=== PATIENT | female | born 1950 | race Two or more races ===

== ENCOUNTER → 2020-09-06 13:37 | Outpatient (BNVA) | payer MEDICARE, SELFPAY | PROVIDERS: PCP Internal Medicine; Visit Provider Nurse Practitioner ==

== ENCOUNTER 2020-10-22 11:17 | Outpatient (REF) | payer MEDICARE, SELFPAY ==
--- NOTE | ~2020-10-22 | MM_ITS ---
EXAMINATION: MM SCREENING DIGITAL BREAST TOMOSYNTHESIS, BILATERAL CLINICAL INFORMATION: Screening. Asymptomatic. The lifetime risk of breast cancer based on the Tyrer-Cuzick Model is 2.9%. COMPARISON: Mammography: September 16, 2019 and studies dating back to August 27, 2017 TECHNIQUE: Digital breast tomosynthesis is performed in both the craniocaudal and mediolateral oblique views along with computer-aided detection (CAD). Synthesized 2D images are generated from the tomosynthesis. FINDINGS: There are scattered areas of fibroglandular density (ACR BI-RADS breast composition Category b). There are no significant masses, abnormal calcifications, or other abnormalities. MM/MM tomosynthesis screening BI IMPRESSION: There are no significant changes from prior study. ASSESSMENT: BI-RADS 1: Negative RECOMMENDATION: Routine annual mammography screening. This patient's information was entered into a reminder system with a target due date for their next mammogram.
== END 2020-10-22 11:18 | disposition home or self-care (01) ==
LOC: HO.MAMMO 11:17
PROVIDERS: Visit Provider Internal Medicine
DX: Z12.31 Encounter for screening mammogram for malignant neoplasm of breast (principal)
CPT/HCPCS: 77063; 77067

== ENCOUNTER → 2020-12-10 15:24 | Outpatient (BNVA) | payer MEDICARE, SELFPAY | PROVIDERS: PCP Internal Medicine; Visit Provider Nurse Practitioner | DX: K21.9 Gastro-esophageal reflux disease without esophagitis (principal); D64.9 Anemia, unspecified; K59.04 Chronic idiopathic constipation; R14.0 Abdominal distension (gaseous) | CPT/HCPCS: 99212 ==

== ENCOUNTER 2021-01-06 08:56 | Outpatient (REF) | payer MEDICARE, SELFPAY ==
--- NOTE | ~2021-01-06 | US_ITS ---
EXAMINATION: US ABDOMEN COMPLETE CLINICAL INFORMATION: Right upper quadrant pain. COMPARISON: None TECHNIQUE: Real-time imaging of the abdominal viscera. Technically difficult study secondary to bowel gas. FINDINGS: PANCREAS: The head and body the pancreas are normal appearing. The tail is not well visualized due to bowel gas. The main pancreatic duct is upper normal in size measuring 3 mm. ABDOMINAL AORTA: The proximal, mid, and distal segments are normal in caliber. INFERIOR VENA CAVA: Visualized portions are normal. LIVER: The liver is normal in size. The liver contour is normal. Liver echotexture is increased probably representing fatty infiltration. No focal hepatic lesion. There is no intrahepatic biliary duct dilatation seen. GALLBLADDER: Normal. The gallbladder is physiologically distended without evidence of stones, sludge, polyps, wall thickening or pericholecystic fluid. COMMON BILE DUCT: Normal in caliber measuring 0.5 cm in diameter. RIGHT KIDNEY: Normal. No hydronephrosis. No renal calculi or focal parenchymal lesions. The kidney measures 11.2 cm in maximum dimension. LEFT KIDNEY: Normal. No hydronephrosis. No renal calculi or focal parenchymal lesions. The kidney measures 10.8 cm in maximum dimension. SPLEEN: Normal. The spleen measures 8.9 cm in maximum dimension. FREE FLUID: None. US/US abdomen complete IMPRESSION: Echogenic liver probably representing fatty infiltration. Limited visualization of the tail the pancreas. The visualized main pancreatic duct is upper normal in size measuring 3 mm.
== END 2021-01-06 08:57 | disposition home or self-care (01) ==
LOC: HO.US 08:56
PROVIDERS: Visit Provider Internal Medicine
DX: R10.11 Right upper quadrant pain (principal)
CPT/HCPCS: 76700

== ENCOUNTER → 2021-05-12 09:31 | Outpatient (BNVA) | payer MEDICARE, SELFPAY | PROVIDERS: PCP Internal Medicine; Referring Provider Internal Medicine; Visit Provider Nurse Practitioner | DX: K59.04 Chronic idiopathic constipation (principal); K21.9 Gastro-esophageal reflux disease without esophagitis; R14.0 Abdominal distension (gaseous) | CPT/HCPCS: 99212 ==

== ENCOUNTER 2021-06-07 14:24 | Outpatient (REF) | payer MEDICARE, SELFPAY ==
--- NOTE | ~2021-06-07 | XR_ITS ---
EXAMINATION: XR THORACOLUMBAR SPINE CLINICAL INFORMATION: Back pain radiating to right side COMPARISON: Chest x-ray from the same day TECHNIQUE: 3 views of the thoracic spine including swimmer's view FINDINGS: Bone alignment is normal. No fracture or dislocation is seen. There is multilevel degenerative disc disease and spondylosis. Paraspinal soft tissues are normal. XR/XR thoracic spine 2V IMPRESSION: Multilevel degenerative changes.
--- NOTE | ~2021-06-07 | XR_ITS ---
EXAMINATION: XR CHEST CLINICAL INFORMATION: Posterior chest wall pain COMPARISON: Previous chest x-ray August 2019 and thoracic spine x-ray from the same day TECHNIQUE: Frontal view of the chest was obtained. FINDINGS: The cardiac and mediastinal contours are stable. The lungs are clear. There is no pleural effusion or pneumothorax. There are degenerative changes of the thoracic spine. XR/XR chest 1V IMPRESSION: No evidence for acute disease in the chest.
[2021-06-07 17:04] LABS: Appearance Urine CLEAR; Color Urine YELLOW; Glucose Urine UA NEG (NEG); Leukocyte Esterase Urine NEG (NEG); Nitrite Urine NEG (NEG); Specific Gravity - Urine <= 1.005 (1.005-1.025); Urine Blood NEG (NEG); Urine Ketones NEG (NEG); Urine Protein NEG (NEG-TRACE)
== END 2021-06-07 14:25 | disposition home or self-care (01) ==
LOC: HO.LAB 14:24
PROVIDERS: PCP Internal Medicine; Referring Provider Internal Medicine; Visit Provider Nurse Practitioner
DX: R10.9 Unspecified abdominal pain (principal); K21.9 Gastro-esophageal reflux disease without esophagitis; K59.04 Chronic idiopathic constipation; Z79.899 Other long term (current) drug therapy
CPT/HCPCS: 71045; 72070; 81003; 99212

== ENCOUNTER 2021-06-27 13:02 | Outpatient (REF) | payer MEDICARE, SELFPAY ==
--- NOTE | ~2021-06-27 | XR_ITS ---
EXAMINATION: XR CERVICAL SPINE XR THORACIC SPINE CLINICAL INFORMATION: Cervicalgia and thoracic spine pain. COMPARISON: Thoracic spine 06/07/2021. TECHNIQUE: 3 views thoracic spine, 5 views cervical spine. FINDINGS: CERVICAL SPINE: Marked degenerative changes are present at C5-C6 with marked disc space narrowing and osteophyte formation. There is minimal foraminal narrowing at this level on the right and slightly more narrowing at that level on the left. No soft tissue swelling, fractures or subluxations are seen. Milder degenerative changes are noted at other levels. THORACIC SPINE: Thoracic vertebral body heights are well maintained without fractures or destructive lesions. There is mild disc space narrowing throughout the upper to mid thoracic spine. Lateral osteophytes are present. Paraspinal soft tissue lines appear normal. No interval change when compared to 06/07/2021. XR/XR thoracic spine 3V IMPRESSION: Degenerative changes cervical and thoracic spine as described above. No acute finding.
--- NOTE | ~2021-06-27 | XR_ITS ---
EXAMINATION: XR CERVICAL SPINE XR THORACIC SPINE CLINICAL INFORMATION: Cervicalgia and thoracic spine pain. COMPARISON: Thoracic spine 06/07/2021. TECHNIQUE: 3 views thoracic spine, 5 views cervical spine. FINDINGS: CERVICAL SPINE: Marked degenerative changes are present at C5-C6 with marked disc space narrowing and osteophyte formation. There is minimal foraminal narrowing at this level on the right and slightly more narrowing at that level on the left. No soft tissue swelling, fractures or subluxations are seen. Milder degenerative changes are noted at other levels. THORACIC SPINE: Thoracic vertebral body heights are well maintained without fractures or destructive lesions. There is mild disc space narrowing throughout the upper to mid thoracic spine. Lateral osteophytes are present. Paraspinal soft tissue lines appear normal. No interval change when compared to 06/07/2021. XR/XR cervical spine 4V IMPRESSION: Degenerative changes cervical and thoracic spine as described above. No acute finding.
== END 2021-06-27 13:03 | disposition home or self-care (01) ==
LOC: HO.XRAY 13:02
PROVIDERS: Visit Provider Internal Medicine
DX: M54.2 Cervicalgia (principal); M54.6 Pain in thoracic spine
CPT/HCPCS: 72050; 72072

== ENCOUNTER 2021-08-15 09:13 | Outpatient (REF) | payer MEDICARE, SELFPAY ==
--- NOTE | ~2021-08-15 | US_ITS ---
EXAMINATION: US ABDOMEN COMPLETE CLINICAL INFORMATION: Unspecified abdominal pain. COMPARISON: Ultrasound abdomen complete 01/06/2021. TECHNIQUE: Real-time imaging of the abdominal viscera. FINDINGS: PANCREAS: The main pancreatic duct is slightly prominent measuring 4 mm. This is similar to December 2020 exam. The tail the pancreas is not well visualized due to bowel gas. ABDOMINAL AORTA: Proximal and mid abdominal aorta are normal in caliber. The distal abdominal aorta is not well visualized due to bowel gas. INFERIOR VENA CAVA: Visualized portions are normal. LIVER: Echotexture is increased. The liver is normal in size. The liver contour is normal. No focal hepatic lesion. There is no intrahepatic biliary duct dilatation seen. GALLBLADDER: Normal. The gallbladder is physiologically distended without evidence of stones, sludge, polyps, wall thickening or pericholecystic fluid. COMMON BILE DUCT: Normal in caliber measuring 0.4 cm in diameter. RIGHT KIDNEY: Normal. No hydronephrosis. No renal calculi or focal parenchymal lesions. The kidney measures 10.9 cm in maximum dimension. LEFT KIDNEY: Normal. No hydronephrosis. No renal calculi or focal parenchymal lesions. The kidney measures 11.7 cm in maximum dimension. SPLEEN: Normal. The spleen measures 9.4 cm in maximum dimension. FREE FLUID: None. US/US abdomen complete IMPRESSION: Echogenic liver probably representing fatty infiltration. Prominent main pancreatic duct in the head of the pancreas similar to previous exam. The tail the pancreas and distal abdominal aorta are not well visualized due to bowel gas.
== END 2021-08-15 09:14 | disposition home or self-care (01) ==
LOC: HO.US 09:13
PROVIDERS: PCP Internal Medicine; Visit Provider Nurse Practitioner
DX: R10.9 Unspecified abdominal pain (principal)
CPT/HCPCS: 76700

== ENCOUNTER 2021-08-16 07:32 | Outpatient (REF) | payer MEDICARE, OTHER, SELFPAY ==
--- NOTE | ~2021-08-16 | CT_ITS ---
EXAMINATION: CT ABDOMEN WITH CONTRAST CLINICAL INFORMATION: Right upper quadrant pain. COMPARISON: Previous abdominal ultrasound from yesterday. TECHNIQUE: Contiguous axial thin section helical images of the abdomen were performed following the administration of oral contrast and 85 mL of Omnipaque 350 intravenous contrast. The data set was reformatted in the coronal and sagittal planes and reviewed on an independent workstation. This CT examination was performed using dose optimization techniques as appropriate, variously including the following: *Automated exposure control *Adjustment of mA and/or kV according to patient size (this includes techniques or standardized protocols for targeted exams where dose is matched to indication/reason for exam; i.e. extremities or head) *Use of iterative reconstruction technique DLP: 185 mGy-cm FINDINGS: LUNG BASES: Unremarkable. LIVER, GALLBLADDER, AND BILIARY TREE: The liver is low in attenuation suggestive of fatty infiltration. No focal liver lesion or biliary duct dilatation. There are small calcifications in the peripheral right lobe. The gallbladder is normal. PANCREAS: There is mild dilatation of the main pancreatic duct in the head of the pancreas. This measures up to 6 mm. No mass in the pancreas is seen. SPLEEN: Unremarkable. ADRENAL GLANDS AND KIDNEYS: Unremarkable. BOWEL LOOPS: There is mild diverticulosis of the colon. There is stool in the colon questionable for constipation. Visualized small and large bowel is otherwise unremarkable. There is a small esophageal hernia. There is a small umbilical hernia. LYMPH NODES: Normal. VASCULAR: There is evidence of atherosclerotic disease. No aneurysm is seen. BONES: There are degenerative changes of the spine. CT/CT abdomen w con IMPRESSION: Fatty liver. Prominent main pancreatic duct in the head of the pancreas measuring up to 6 mm. No mass. This could be better evaluated with MRI of the pancreas with MRCP if clinically indicated. Mild diverticulosis question constipation. Small umbilical hernia containing fat. Fleischner guidelines were followed.
[2021-08-16 09:33] LABS: Blood Urea Nitrogen 12 mg/dL (9-16); Estimated Glomerular Filt Rate 59
[2021-08-16] MEDS: iohexoL 350 MG/ML 100 ML INFUS..BTL IV (10:31)
[2021-08-16] MEDS: Barium Sulfate Oral (Mocha) 450 ML ORAL.SUSP PO (10:32)
== END 2021-08-16 07:33 | disposition home or self-care (01) ==
LOC: HO.CT 07:32
PROVIDERS: PCP Internal Medicine; Visit Provider Internal Medicine
DX: R10.11 Right upper quadrant pain (principal)
CPT/HCPCS: 36415; 74160; 82565; 84520; Q9967

== ENCOUNTER → 2021-08-30 08:02 | Outpatient (BNVA) | payer MEDICARE, SELFPAY | PROVIDERS: PCP Internal Medicine; Referring Provider Internal Medicine; Visit Provider Nurse Practitioner | DX: K21.9 Gastro-esophageal reflux disease without esophagitis (principal); K59.04 Chronic idiopathic constipation; R14.0 Abdominal distension (gaseous); M47.24 Other spondylosis with radiculopathy, thoracic region | CPT/HCPCS: 99212 ==

== ENCOUNTER 2021-10-24 11:49 | Outpatient (REF) | payer MEDICARE, SELFPAY ==
--- NOTE | ~2021-10-24 | MM_ITS ---
EXAMINATION: MM SCREENING DIGITAL BREAST TOMOSYNTHESIS, BILATERAL CLINICAL INFORMATION: Screening. Asymptomatic. The lifetime risk of breast cancer based on the Tyrer-Cuzick Model is 5%. COMPARISON: Mammography: 10/22/2020, 09/16/2019, 09/10/2018, 118, 09/12/2017, 08/27/2017 TECHNIQUE: Digital breast tomosynthesis is performed in both the craniocaudal and mediolateral oblique views along with computer-aided detection (CAD). Synthesized 2D images are generated from the tomosynthesis. FINDINGS: There are scattered areas of fibroglandular density (ACR BI-RADS breast composition Category b). Parenchymal pattern is similar to prior studies. There are scattered minor asymmetries similar to previous exams. No developing density or interval mass or architectural abnormality. No abnormal calcifications. The axilla and skin contours are unremarkable. MM/MM tomosynthesis screening BI IMPRESSION: No significant changes from prior studies. ASSESSMENT: BI-RADS 2: Benign RECOMMENDATION: Routine annual mammography screening. This patient's information was entered into a reminder system with a target due date for their next mammogram.
== END 2021-10-24 11:50 | disposition home or self-care (01) ==
LOC: HO.MAMMO 11:49
PROVIDERS: Visit Provider Advanced Practice Midwife
DX: Z12.31 Encounter for screening mammogram for malignant neoplasm of breast (principal)
CPT/HCPCS: 77063; 77067

== ENCOUNTER 2021-10-25 14:56 | Outpatient (REF) | payer MEDICARE, SELFPAY ==
--- NOTE | ~2021-10-25 | MM_ITS ---
EXAMINATION: BONE DENSITOMETRY CLINICAL INDICATION: Osteopenia. COMPARISON: Baseline BD dated 09/11/2017. TECHNIQUE: Using a [employer] DXA System (software version: 13.1) manufactured by [employer] dual-energy x-ray absorptiometry was performed of the lumbar spine and left hip. The images are of good technical quality. Summary results are attached. FINDINGS: AP SPINE L1-L4: Current: BMD 0.991 g/cm2, Z-score 0.0, T-score -1.6, osteopenia, 7.1% increase from baseline (<5% change is not significant). Baseline: BMD 0.925 g/cm2. LEFT FEMUR, NECK: Current: BMD 0.727 g/cm2, Z-score -0.5, T-score -2.2, osteopenia. Baseline: BMD 0.813 g/cm2. LEFT FEMUR, TOTAL: Current: BMD 0.805 g/cm2, Z-score -0.1, T-score -1.6, osteopenia, 8.8% decrease from baseline (<5% change is not significant). Baseline: BMD 0.883 g/cm2. IDENTIFIED RISK FACTORS: Menopause, secondary osteoporosis. HISTORY OF FRACTURE: None listed. MEDICATIONS: Calcium. MM/XR DEXA axial skeleton IMPRESSION: 1. DIAGNOSIS: Osteopenia based on the lowest T-score value of -2.2 in the femoral neck applying World Health Organization criteria. 2. 10-YEAR FRACTURE RISK PREDICTION, FRAX: Major osteoporotic fracture (clinical spine, forearm, hip or shoulder) 8.1%. Hip fracture 2.0%. 3. Treatment Recommendations: NOF guidelines recommend consideration for treatment in postmenopausal women and men age 50 and older presenting with the following: -A hip or vertebral (clinical or morphometric) fracture. -T-score less than or equal to -2.5 at the femoral neck or spine after appropriate evaluation to exclude secondary causes. -Low bone mass at the hip or spine and a 10-year fracture probability by FRAX of greater than or equal to 3% for hip fracture or greater than or equal to 20% for major osteoporotic fracture based on the [place] adapted WHO algorithm. 4. Other Recommendations: All treatment decisions require clinical judgment and consideration of individual patient factors, including patient preferences, comorbidities, previous drug use, risk factors not captured in the FRAX model (e.g. frailty, falls, vitamin D deficiency, increased bone turnover, interval significant decline in bone density) and possible under or overestimation of fracture risk by FRAX. Additional medical evaluation for secondary cause of low bone mineral density may be appropriate. FUTURE SCAN RECOMMENDATION: People with diagnosed cases of osteoporosis or at high risk for fracture should have regular bone mineral density tests. For patients eligible for Medicare, routine testing is allowed once every 2 years. The testing frequency can be increased to one year for patients who have rapidly progressing disease, those who are receiving or discontinuing medical therapy to restore bone mass, or have additional risk factors.
== END 2021-10-25 14:57 | disposition home or self-care (01) ==
LOC: HO.MAMMO 14:56
PROVIDERS: Visit Provider Advanced Practice Midwife
DX: Z13.820 Encounter for screening for osteoporosis (principal); Z78.0 Asymptomatic menopausal state; M85.80 Other specified disorders of bone density and structure, unspecified site
CPT/HCPCS: 77080

== ENCOUNTER 2021-11-29 10:15 | Outpatient (REF) | payer MEDICARE, MEDICAID, SELFPAY ==
[2021-11-29 11:24] LABS: Blood Urea Nitrogen 12 mg/dL (9-16); Estimated Glomerular Filt Rate > 60
== END 2021-11-29 10:16 | disposition home or self-care (01) ==
LOC: HO.LAB 10:15
PROVIDERS: PCP Internal Medicine; Visit Provider Internal Medicine
DX: E11.9 Type 2 diabetes mellitus without complications (principal)
CPT/HCPCS: 36415; 82565; 84520

== ENCOUNTER 2021-12-07 09:00 | Outpatient (REF) | payer MEDICARE, OTHER, SELFPAY ==
--- NOTE | ~2021-12-07 | MR_ITS ---
EXAMINATION: MR ABDOMEN WITHOUT AND WITH CONTRAST CLINICAL INFORMATION: Dilated pancreatic duct. Pain. COMPARISON: Previous abdominal ultrasound most recent July [address] of the abdomen and pelvis July 2021 TECHNIQUE: MR abdomen was performed without and with use of 7 mL intravenous Gadavist gadolinium contrast. Postcontrast images are performed in multiphase dynamic sequences. Imaging was performed in 3 planes. MRCP sequences were also performed. FINDINGS: LUNG BASES: The visualized lung bases are unremarkable. LIVER, GALLBLADDER, AND BILIARY TREE: The liver is normal in size and contour. There is signal loss in the liver on out of phase sequences suggestive of fatty infiltration.. No focal hepatic lesion or biliary ductal dilatation is present. The gallbladder is unremarkable with no evidence of gallbladder wall thickening, or obvious pericholecystic inflammatory changes. PANCREAS: There is mild dilatation of the main pancreatic duct head of the pancreas measuring 4-5 mm. There is question of focal cystic dilatation of the main pancreatic duct in the head of the pancreas on thick slices. No focal cystic dilatation or cyst in the pancreas seen is seen on thin slices and this likely represents duct tortuosity. The pancreas is normal in signal. The pancreas enhances normally. The peripancreatic fat is normal. SPLEEN: Normal. ADRENAL GLANDS: Normal. KIDNEYS AND URETERS: The kidneys are normal in size, shape, and enhance symmetrically. No hydronephrosis. No perinephric stranding. GASTROINTESTINAL TRACT: There is mild diverticulosis of the colon. There is a small umbilical hernia containing fat. ABDOMINAL WALL: No significant hernia is appreciated. LYMPH NODES: No lymphadenopathy. VASCULAR: Unremarkable. OSSEOUS STRUCTURES: Marrow signal normal. MR/MR abdomen wo/w con IMPRESSION: Mild dilatation of the main pancreatic duct in the head of the pancreas similar to previous exam July 2021. No mass seen. Fatty liver.
== END 2021-12-07 09:01 | disposition home or self-care (01) ==
LOC: HO.MRI 09:00
PROVIDERS: Visit Provider Internal Medicine
DX: K86.89 Other specified diseases of pancreas (principal)
CPT/HCPCS: 74183; A9585

== ENCOUNTER → 2022-06-02 15:12 | Outpatient (BNVA) | payer MEDICARE, OTHER, SELFPAY | PROVIDERS: PCP Internal Medicine; Visit Provider Nurse Practitioner | DX: M47.24 Other spondylosis with radiculopathy, thoracic region (principal); K21.9 Gastro-esophageal reflux disease without esophagitis; R14.0 Abdominal distension (gaseous); K59.04 Chronic idiopathic constipation | CPT/HCPCS: 99212 ==

== ENCOUNTER 2022-06-15 13:05 | Emergency (ER) | payer MEDICARE, SELFPAY ==
--- NOTE | ~2022-06-15 | XR_ITS ---
EXAMINATION: XR CHEST CLINICAL INFORMATION: Syncope COMPARISON: Chest x-ray 06/07/2021 TECHNIQUE: Frontal view of the chest was obtained. FINDINGS: The lungs are clear. No airspace consolidation, pleural effusion, or pneumothorax. The cardiomediastinal silhouette is within normal limits. No acute osseous injury. XR/XR chest 1V IMPRESSION: No acute pulmonary disease.
--- NOTE | ~2022-06-15 | CT_ITS ---
EXAMINATION: CT ABDOMEN AND PELVIS WITH CONTRAST CLINICAL INFORMATION: Right lower quadrant/epigastric pain COMPARISON: CT abdomen and pelvis 08/16/2021 TECHNIQUE: Multidetector volumetric images were obtained from the superior aspect of the liver through the pubic symphysis following administration 85 mL of Omnipaque 350 intravenous contrast. Sagittal and coronal reformatted images were obtained on the technologist's workstation. Oral contrast: No This CT examination was performed using dose optimization techniques as appropriate, variously including the following: *Automated exposure control *Adjustment of mA and/or kV according to patient size (this includes techniques or standardized protocols for targeted exams where dose is matched to indication/reason for exam; i.e. extremities or head) *Use of iterative reconstruction technique DLP: 458 mGy-cm FINDINGS: LUNG BASES: Minimal lingular subsegmental atelectasis. LIVER, GALLBLADDER, AND BILIARY TREE: Mild hepatic hypoattenuation/steatosis. No liver lesion. No biliary ductal dilation. The gallbladder is unremarkable with no evidence of radiopaque gallstones, gallbladder wall thickening, or obvious pericholecystic inflammatory changes. PANCREAS: Mild dilation of the distal pancreatic duct at the pancreatic head, unchanged. No pancreatic lesion or peripancreatic inflammatory change. SPLEEN: Unremarkable. ADRENAL GLANDS: Unremarkable. KIDNEYS AND URETERS: Symmetric nephrograms. No hydronephrosis or renal calculi. No perinephric stranding. There several small sub-5 mm hypodense bilateral renal lesions, too small to characterize and likely tiny cysts. No further follow-up recommended. BLADDER: Unremarkable. GASTROINTESTINAL TRACT: Mild scattered colonic diverticulosis. No evidence of acute diverticulitis. No dilated bowel loops. No bowel wall thickening. Normal appendix. No ascites or free air. ABDOMINAL WALL: Tiny fat-containing umbilical hernia. Small bubbles of subcutaneous gas and stranding in the left lower quadrant abdominal wall consistent with injection site. LYMPH NODES: No lymphadenopathy. VASCULAR: Normal caliber abdominal aorta. Mild to moderate vascular calcifications. PELVIC VISCERA: Gynecologic structures grossly unremarkable. OSSEOUS STRUCTURES: No acute fracture or suspicious osseous lesion. CT/CT abdomen pelvis w IV con IMPRESSION: 1. No evidence of acute appendicitis or other acute intra-abdominal process. 2. Mild colonic diverticulosis. No evidence of acute diverticulitis. 3. Mild hepatic steatosis.
[2022-06-15 14:01] VITALS: BP 135/73; PULSE 105; RESP 18; TEMP 36.3; O2SAT 96; BMI 23.1
--- NOTE | 2022-06-15 14:01 | ED.GENADULT ---
HPI - General Adult General Chief complaint: Abdominal Pain <JOSE JUAN Leonard - Last Filed: 06/15/22 14:09> Stated complaint: fell 2 days ago not feeling well stomach issue <JOSE JUAN Leonard - Last Filed: 06/15/22 14:09> Time Seen by Provider: 06/15/22 19:20 <JOSE JUAN Leonard - Last Filed: 06/15/22 14:09> Source: patient and family <Joanie Abbott MD - Last Filed: 06/15/22 22:32> Mode of arrival: ambulatory <Joanie Abbott MD - Last Filed: 06/15/22 22:32> Limitations: no limitations <Joanie Abbott MD - Last Filed: 06/15/22 22:32> History of Present Illness HPI narrative: Patient comes to the emergency room complaining of syncopal episode secondary to hypoglycemia that occurred 2 days ago. According to the patient's , the patient passed out in the couch, patient did not fall down or hit her head. Patient states that she has had multiple hypoglycemic events in the last couple of years. Patient takes insulin Lantus, Humulin and metformin. Patient states that over last 3 days she has been also complaining of abdominal distension. Patient was prescribed omeprazole and simethicone. <Joanie Abbott MD - Last Filed: 06/15/22 22:32> Related Data Home medications: Home Medications Medication Instructions Recorded Confirmed calcium carbonate 600 mg-vitamin 1 tab PO DAILY 12/10/20 12/10/20 D3 20 mcg (800 unit) tablet cetirizine 10 mg tablet 10 mg PO DAILY 12/10/20 12/10/20 enalapril maleate 20 mg tablet 20 mg PO DAILY 12/10/20 12/10/20 gabapentin 800 mg tablet mg PO 12/10/20 12/10/20 insulin aspart U-100 100 unit/mL 5 unit subcut TID 12/10/20 12/10/20 subcutaneous solution insulin glargine 100 unit/mL 36 unit subcut DAILY 12/10/20 12/10/20 subcutaneous solution metformin 1,000 mg tablet 1,000 mg PO BID 12/10/20 12/10/20 ramelteon 8 mg tablet 8 mg PO BEDTIME 12/10/20 12/10/20 simvastatin 20 mg tablet 20 mg PO BEDTIME 12/10/20 12/10/20 trazodone 100 mg tablet 100 mg PO QPM 12/10/20 12/10/20 blood sugar diagnostic (OneTouch #10 ea 06/02/22 Verio test strips) blood-glucose meter (OneTouch #1 ea 06/02/22 Verio Flex Meter) insulin lispro 100 unit/mL subcut 06/02/22 subcutaneous solution (Humalog U-100 Insulin) insulin syringe-needle U-100 0.3 #10 ea 06/02/22 mL 31 gauge x 5/16 Previous Rx's Medication Instructions Recorded prednisone 20 mg tablet See Rx Instructions PO DAILY #7 08/30/21 tabs bisacodyl 5 mg tablet,delayed 10 mg PO BEDTIME 30 days #60 tabs 06/02/22 release (Dulcolax (bisacodyl)) omeprazole 40 mg capsule,delayed 40 mg PO BID #60 caps 06/02/22 release simethicone 180 mg capsule 180 mg PO TID #90 caps 06/02/22 glucagon 1 mg solution for 1 mg subcut Q20M PRN hypoglycemia 06/15/22 injection (Glucagon Emergency Kit) #1 ea <JOSE JUAN Leonard - Last Filed: 06/15/22 14:09> Allergies/adverse reactions: Allergies Allergy/AdvReac Type Severity Reaction Status Date / Time No Known Allergies Allergy Verified 06/02/22 15:17 [No Known Allergies*] <JOSE JUAN Leonard - Last Filed: 06/15/22 14:09> Review of Systems Review of Systems: Constitutional : No Weight loss, No Fever, No Chills, No Night Sweats, No Fatigue, No Malaise ENT/Mouth : No Hearing loss, No Ear Pain, No Nasal Congestion, No Sinus Pain, No Hoarseness, No sore throat, No Rhinorrhea, No Swallowing Difficulty Eyes: No Eye Pain, No Swelling, No Redness, No Foreign Body, No Discharge, No Vision Changes Cardiovascular : No Chest Pain, No SOB, No Dyspnea on Exertion, No Orthopnea, No Edema, No Palpitations Respiratory : No Cough, No Sputum, No Wheezing, No Smoke Exposure, No Dyspnea Gastrointestinal : Complaining of abdominal distension, No Nausea, No Vomiting, No Diarrhea, No Constipation, No abdominal Pain, No Hematochezia, No Melena Genitourinary : no irregular bleeding, No Dysuria, No Urinary Frequency, No Hematuria, No Urinary Incontinence, No Urgency, No Flank Pain, No Urinary Flow Changes, No Hesitancy Musculoskeletal : No joint pain, No Myalgias, No Joint Swelling Skin : No Skin Lesions, No rash Neuro : No Weakness, No Numbness, No Paresthesias, No Loss of Consciousness, No Dizziness, No Headache Psych : No Anxiety/Panic, No Depression, No SI/HI/AH/VH, No Social Issues, Heme/Lymph: No Bruising, No Bleeding,No Lymphadenopathy Endocrine : No Polyuria, No Polydipsia, No Temperature Intolerance, complaining of hypoglycemia at home <Joanie Abbott MD - Last Filed: 06/15/22 22:32> [facility] Past Medical History Medical History: Medical History (Updated 06/15/22 @ 22:30 by Joanie Abbott MD) Type 2 diabetes <JOSE JUAN Leonard - Last Filed: 06/15/22 14:09> Surgical History: Surgical History History of esophagogastroduodenoscopy (EGD) Hx of colonoscopy <JOSE JUAN Leonard - Last Filed: 06/15/22 14:09> Social History Social History: Social History Household Members: Spouse Alcohol intake: never Smoked in Last 30 Days: No Use of substances other than those prescribed or required for medical reasons: No Advance Directives: No Advance Directives Information Provided: Yes Current occupational status: retired <JOSE JUAN Leonard - Last Filed: 06/15/22 14:09> Physical Exam ED Vital Signs: Vital Signs - 24 hr 06/15/22 14:01 06/15/22 17:49 06/15/22 19:27 Temperature 97.3 F 98.5 F Pulse Rate 105 H 106 H 97 Respiratory Rate 18 18 16 Blood Pressure 135/73 140/71 H 138/64 Pulse Oximetry 96 97 98 Oxygen Delivery Method Room Air Room Air Room Air BMI result Body Mass Index 23.1 <JOSE JUAN Leonard - Last Filed: 06/15/22 14:09> Vital Signs - 24 hr 06/15/22 14:01 06/15/22 17:49 06/15/22 19:27 Temperature 97.3 F 98.5 F Pulse Rate 105 H 106 H 97 Respiratory Rate 18 18 16 Blood Pressure 135/73 140/71 H 138/64 Pulse Oximetry 96 97 98 Oxygen Delivery Method Room Air Room Air Room Air BMI result Body Mass Index 23.1 <Joanie Abbott MD - Last Filed: 06/15/22 22:32> Course Course Course Narrative: RMRosalie--71-year-old female with a past medical history of GERD, anemia, constipation, DM feels like ball in stomach with associated diarrhea, burping and nausea x1week. Also reports syncopal episode 2 days ago due to hypoglycemia, reports glucose was in the 50s. patient does not remember incident, states says she fell to ground, denies head trauma. Takes baby ASA. Denies headache at present, CP/SOB, fever, vomiting, dysuria/hematuria. Denies similar symptoms in the past. Takes metformin and insulin for her diabetes Reports POC 60s this morning denies taking diabetic meds Abdomen is soft with epigastric and RLQ tenderness on exam. Walking with steady gait Labs, UA, CXR, CTAP, orthostatics ordered in triage <JOSE JUAN Leonard - Last Filed: 06/15/22 14:09> UCHE--71-year-old female with a past medical history of GERD, anemia, constipation, DM feels like ball in stomach with associated diarrhea, burping and nausea x1week. Also reports syncopal episode 2 days ago due to hypoglycemia, reports glucose was in the 50s. patient does not remember incident, states says she fell to ground, denies head trauma. Takes baby ASA. Denies headache at present, CP/SOB, fever, vomiting, dysuria/hematuria. Denies similar symptoms in the past. Takes metformin and insulin for her diabetes Reports POC 60s this morning denies taking diabetic meds Abdomen is soft with epigastric and RLQ tenderness on exam. Walking with steady gait Labs, UA, CXR, CTAP, orthostatics ordered in triage Patient is well-appearing, patient states that she no longer has any abdominal pain after CT scan was done. CT scan did not show any abnormalities. I discussed with the patient that she may have an high amount of units of Lantus at night. Patient asked to cut down from 35 units to 30 at night and [address] scan negative. <Joanie Abbott MD - Last Filed: 06/15/22 22:32> Medications Administered Discontinued Medications Generic Name Dose Route Start Last Admin Trade Name Freq PRN Reason Stop Dose Admin Al Hydroxide/Mg Hydroxide 30 ml 06/15/22 14:04 06/15/22 19:03 Magnesium Hydrox/Alum Hydrox 30 Ml Oral.Susp PO 06/15/22 14:05 30 ml ONCE ONE Administration Famotidine 20 mg 06/15/22 14:04 06/15/22 19:03 Famotidine/Pf 20 Mg/2 Ml Vial IVPUSH 06/15/22 14:05 20 mg ONCE ONE Administration Iohexol 100 ml 06/15/22 20:03 06/15/22 20:04 Iohexol 350 Mg/Ml 100 Ml Infus..Btl IV 06/15/22 20:04 85 ml ONCE ONE Administration Sodium Zirconium Cyclosilicate 5 gm 06/15/22 17:49 06/15/22 19:03 Sodium Zirconium Cyclosilicate 5 Gm Powd.Pack PO 06/15/22 17:50 5 gm ONCE ONE Administration <JOSE JUAN Leonard - Last Filed: 06/15/22 14:09> Medications Administered Discontinued Medications Generic Name Dose Route Start Last Admin Trade Name Freq PRN Reason Stop Dose Admin Al Hydroxide/Mg Hydroxide 30 ml 06/15/22 14:04 06/15/22 19:03 Magnesium Hydrox/Alum Hydrox 30 Ml Oral.Susp PO 06/15/22 14:05 30 ml ONCE ONE Administration Famotidine 20 mg 06/15/22 14:04 06/15/22 19:03 Famotidine/Pf 20 Mg/2 Ml Vial IVPUSH 06/15/22 14:05 20 mg ONCE ONE Administration Iohexol 100 ml 06/15/22 20:03 06/15/22 20:04 Iohexol 350 Mg/Ml 100 Ml Infus..Btl IV 06/15/22 20:04 85 ml ONCE ONE Administration Sodium Zirconium Cyclosilicate 5 gm 06/15/22 17:49 06/15/22 19:03 Sodium Zirconium Cyclosilicate 5 Gm Powd.Pack PO 06/15/22 17:50 5 gm ONCE ONE Administration <Joanie Abbott MD - Last Filed: 06/15/22 22:32> Medical Decision Making Lab Data Result diagrams: : 06/15/22 14:39 06/15/22 14:39 <JOSE JUAN Leonard - Last Filed: 06/15/22 14:09> Labs: Lab Results 06/15/22 06/15/22 06/15/22 Range/Units 14:39 14:39 14:39 WBC 7.2 (4.8-10.8) X10*3/uL RBC 4.08 L (4.20-5.50) X10*6/uL Hgb 10.4 L (12.0-16.0) g/dl Hct 33.9 L (37.0-47.0) % MCV 83.1 (80.0-98.0) fL MCH 25.5 L (27.0-33.0) pg MCHC 30.7 L (31.0-35.0) g/dl RDW 16.2 H (11.0-16.0) % Plt Count 367 (160-400) X10*3/uL MPV 8.8 L (9.4-12.3) fL Immature Gran % (Auto) 0.3 (0.0-0.4) % Neut % (Auto) 59.9 (45-73) % Lymph % (Auto) 28.9 (20-40) % Love % (Auto) 7.7 (2-11) % Eos % (Auto) 2.8 (0-4) % Baso % (Auto) 0.4 (0-2) % Lymph # (Auto) 2.1 (1.2-4.9) X10*3/uL Love # (Auto) 0.6 (0.1-1.2) X10*3/uL Eos # (Auto) 0.2 (0.0-0.4) X10*3/uL Baso # (Auto) 0.0 (0.0-0.2) X10*3/uL Abs Immat Gran (auto) 0.02 (0.00-0.03) X10*3/uL Absolute Neuts (auto) 4.3 (2.0-8.3) x10*3/uL Absolute Nucleated RBC 0.000 (0.0-0.012) X10*3/uL Nucleated RBC % (auto) 0.0 (0.0-0.2) /100WBC PT 10.8 (10.0-13.1) SEC INR 0.9 (0.9-1.1) Sodium 138 (135-145) mmol/L Potassium 5.2 H (3.3-5.1) mmol/L Chloride 101 (96-108) mmol/L Carbon Dioxide 23 (22-29) mmol/L Anion Gap 19 (12-20) BUN 13 (9-16) mg/dL Creatinine 0.92 (0.5-1.4) mg/dL Estim Creat Clear Calc 53.7 Estimated GFR > 60 POC Glucose (60-115) mg/dL Random Glucose 78 (60-115) mg/dL Calcium 10.0 (8.4-10.2) mg/dL Magnesium 1.6 (1.6-2.6) mg/dL Total Bilirubin 0.2 (0.0-1.0) mg/dL Direct Bilirubin < 0.2 (0.0-0.5) mg/dL AST 20 (5-31) U/L ALT 18 (0-31) U/L Alkaline Phosphatase 75 (39-117) U/L Troponin I High Sens (<3.5-17.0) ng/L Total Protein 7.6 (6.5-8.0) g/dL Albumin 4.4 (3.5-5.0) g/dL Lipase 31 (8-78) U/L Urine Color Urine Appearance Urine pH (5.0-9.0) Ur Specific [place] (1.005-1.025) Urine Protein (Neg-Trace) mg/dL Urine Glucose (UA) (Negative) mg/dL Urine Ketones (Negative) mg/dL Urine Blood (Negative) Urine Nitrite (Negative) Ur Leukocyte Esterase (Negative) COVID-19 ([facility]) (Negative) COVID-19 Clin Com 06/15/22 06/15/22 06/15/22 Range/Units 14:39 14:39 17:57 WBC (4.8-10.8) X10*3/uL RBC (4.20-5.50) X10*6/uL Hgb (12.0-16.0) g/dl Hct (37.0-47.0) % MCV (80.0-98.0) fL MCH (27.0-33.0) pg MCHC (31.0-35.0) g/dl RDW (11.0-16.0) % Plt Count (160-400) X10*3/uL MPV (9.4-12.3) fL Immature Gran % (Auto) (0.0-0.4) % Neut % (Auto) (45-73) % Lymph % (Auto) (20-40) % Love % (Auto) (2-11) % Eos % (Auto) (0-4) % Baso % (Auto) (0-2) % Lymph # (Auto) (1.2-4.9) X10*3/uL Love # (Auto) (0.1-1.2) X10*3/uL Eos # (Auto) (0.0-0.4) X10*3/uL Baso # (Auto) (0.0-0.2) X10*3/uL Abs Immat Gran (auto) (0.00-0.03) X10*3/uL Absolute Neuts (auto) (2.0-8.3) x10*3/uL Absolute Nucleated RBC (0.0-0.012) X10*3/uL Nucleated RBC % (auto) (0.0-0.2) /100WBC PT (10.0-13.1) SEC INR (0.9-1.1) Sodium (135-145) mmol/L Potassium (3.3-5.1) mmol/L Chloride (96-108) mmol/L Carbon Dioxide (22-29) mmol/L Anion Gap (12-20) BUN (9-16) mg/dL Creatinine (0.5-1.4) mg/dL Estim Creat Clear Calc Estimated GFR POC Glucose (60-115) mg/dL Random Glucose (60-115) mg/dL Calcium (8.4-10.2) mg/dL Magnesium (1.6-2.6) mg/dL Total Bilirubin (0.0-1.0) mg/dL Direct Bilirubin (0.0-0.5) mg/dL AST (5-31) U/L ALT (0-31) U/L Alkaline Phosphatase (39-117) U/L Troponin I High Sens < 3.5 (<3.5-17.0) ng/L Total Protein (6.5-8.0) g/dL Albumin (3.5-5.0) g/dL Lipase (8-78) U/L Urine Color Yellow Urine Appearance Clear Urine pH 5.5 (5.0-9.0) Ur Specific [place] 1.020 (1.005-1.025) Urine Protein Negative (Neg-Trace) mg/dL Urine Glucose (UA) Negative (Negative) mg/dL Urine Ketones Negative (Negative) mg/dL Urine Blood Negative (Negative) Urine Nitrite Negative (Negative) Ur Leukocyte Esterase Negative (Negative) COVID-19 ([facility]) Negative (Negative) COVID-19 Clin Com See Note 06/15/22 Range/Units 19:09 WBC (4.8-10.8) X10*3/uL RBC (4.20-5.50) X10*6/uL Hgb (12.0-16.0) g/dl Hct (37.0-47.0) % MCV (80.0-98.0) fL MCH (27.0-33.0) pg MCHC (31.0-35.0) g/dl RDW (11.0-16.0) % Plt Count (160-400) X10*3/uL MPV (9.4-12.3) fL Immature Gran % (Auto) (0.0-0.4) % Neut % (Auto) (45-73) % Lymph % (Auto) (20-40) % Love % (Auto) (2-11) % Eos % (Auto) (0-4) % Baso % (Auto) (0-2) % Lymph # (Auto) (1.2-4.9) X10*3/uL Love # (Auto) (0.1-1.2) X10*3/uL Eos # (Auto) (0.0-0.4) X10*3/uL Baso # (Auto) (0.0-0.2) X10*3/uL Abs Immat Gran (auto) (0.00-0.03) X10*3/uL Absolute Neuts (auto) (2.0-8.3) x10*3/uL Absolute Nucleated RBC (0.0-0.012) X10*3/uL Nucleated RBC % (auto) (0.0-0.2) /100WBC PT (10.0-13.1) SEC INR (0.9-1.1) Sodium (135-145) mmol/L Potassium (3.3-5.1) mmol/L Chloride (96-108) mmol/L Carbon Dioxide (22-29) mmol/L Anion Gap (12-20) BUN (9-16) mg/dL Creatinine (0.5-1.4) mg/dL Estim Creat Clear Calc Estimated GFR POC Glucose 66 (60-115) mg/dL Random Glucose (60-115) mg/dL Calcium (8.4-10.2) mg/dL Magnesium (1.6-2.6) mg/dL Total Bilirubin (0.0-1.0) mg/dL Direct Bilirubin (0.0-0.5) mg/dL AST (5-31) U/L ALT (0-31) U/L Alkaline Phosphatase (39-117) U/L Troponin I High Sens (<3.5-17.0) ng/L Total Protein (6.5-8.0) g/dL Albumin (3.5-5.0) g/dL Lipase (8-78) U/L Urine Color Urine Appearance Urine pH (5.0-9.0) Ur Specific [place] (1.005-1.025) Urine Protein (Neg-Trace) mg/dL Urine Glucose (UA) (Negative) mg/dL Urine Ketones (Negative) mg/dL Urine Blood (Negative) Urine Nitrite (Negative) Ur Leukocyte Esterase (Negative) COVID-19 ([facility]) (Negative) COVID-19 Clin Com <JOSE JUAN Leonard - Last Filed: 06/15/22 14:09> Lab Results 06/15/22 06/15/22 06/15/22 Range/Units 14:39 14:39 14:39 WBC 7.2 (4.8-10.8) X10*3/uL RBC 4.08 L (4.20-5.50) X10*6/uL Hgb 10.4 L (12.0-16.0) g/dl Hct 33.9 L (37.0-47.0) % MCV 83.1 (80.0-98.0) fL MCH 25.5 L (27.0-33.0) pg MCHC 30.7 L (31.0-35.0) g/dl RDW 16.2 H (11.0-16.0) % Plt Count 367 (160-400) X10*3/uL MPV 8.8 L (9.4-12.3) fL Immature Gran % (Auto) 0.3 (0.0-0.4) % Neut % (Auto) 59.9 (45-73) % Lymph % (Auto) 28.9 (20-40) % Love % (Auto) 7.7 (2-11) % Eos % (Auto) 2.8 (0-4) % Baso % (Auto) 0.4 (0-2) % Lymph # (Auto) 2.1 (1.2-4.9) X10*3/uL Love # (Auto) 0.6 (0.1-1.2) X10*3/uL Eos # (Auto) 0.2 (0.0-0.4) X10*3/uL Baso # (Auto) 0.0 (0.0-0.2) X10*3/uL Abs Immat Gran (auto) 0.02 (0.00-0.03) X10*3/uL Absolute Neuts (auto) 4.3 (2.0-8.3) x10*3/uL Absolute Nucleated RBC 0.000 (0.0-0.012) X10*3/uL Nucleated RBC % (auto) 0.0 (0.0-0.2) /100WBC PT 10.8 (10.0-13.1) SEC INR 0.9 (0.9-1.1) Sodium 138 (135-145) mmol/L Potassium 5.2 H (3.3-5.1) mmol/L Chloride 101 (96-108) mmol/L Carbon Dioxide 23 (22-29) mmol/L Anion Gap 19 (12-20) BUN 13 (9-16) mg/dL Creatinine 0.92 (0.5-1.4) mg/dL Estim Creat Clear Calc 53.7 Estimated GFR > 60 POC Glucose (60-115) mg/dL Random Glucose 78 (60-115) mg/dL Calcium 10.0 (8.4-10.2) mg/dL Magnesium 1.6 (1.6-2.6) mg/dL Total Bilirubin 0.2 (0.0-1.0) mg/dL Direct Bilirubin < 0.2 (0.0-0.5) mg/dL AST 20 (5-31) U/L ALT 18 (0-31) U/L Alkaline Phosphatase 75 (39-117) U/L Troponin I High Sens (<3.5-17.0) ng/L Total Protein 7.6 (6.5-8.0) g/dL Albumin 4.4 (3.5-5.0) g/dL Lipase 31 (8-78) U/L Urine Color Urine Appearance Urine pH (5.0-9.0) Ur Specific [place] (1.005-1.025) Urine Protein (Neg-Trace) mg/dL Urine Glucose (UA) (Negative) mg/dL Urine Ketones (Negative) mg/dL Urine Blood (Negative) Urine Nitrite (Negative) Ur Leukocyte Esterase (Negative) COVID-19 ([facility]) (Negative) COVID-19 Clin Com 06/15/22 06/15/22 06/15/22 Range/Units 14:39 14:39 17:57 WBC (4.8-10.8) X10*3/uL RBC (4.20-5.50) X10*6/uL Hgb (12.0-16.0) g/dl Hct (37.0-47.0) % MCV (80.0-98.0) fL MCH (27.0-33.0) pg MCHC (31.0-35.0) g/dl RDW (11.0-16.0) % Plt Count (160-400) X10*3/uL MPV (9.4-12.3) fL Immature Gran % (Auto) (0.0-0.4) % Neut % (Auto) (45-73) % Lymph % (Auto) (20-40) % Love % (Auto) (2-11) % Eos % (Auto) (0-4) % Baso % (Auto) (0-2) % Lymph # (Auto) (1.2-4.9) X10*3/uL Love # (Auto) (0.1-1.2) X10*3/uL Eos # (Auto) (0.0-0.4) X10*3/uL Baso # (Auto) (0.0-0.2) X10*3/uL Abs Immat Gran (auto) (0.00-0.03) X10*3/uL Absolute Neuts (auto) (2.0-8.3) x10*3/uL Absolute Nucleated RBC (0.0-0.012) X10*3/uL Nucleated RBC % (auto) (0.0-0.2) /100WBC PT (10.0-13.1) SEC INR (0.9-1.1) Sodium (135-145) mmol/L Potassium (3.3-5.1) mmol/L Chloride (96-108) mmol/L Carbon Dioxide (22-29) mmol/L Anion Gap (12-20) BUN (9-16) mg/dL Creatinine (0.5-1.4) mg/dL Estim Creat Clear Calc Estimated GFR POC Glucose (60-115) mg/dL Random Glucose (60-115) mg/dL Calcium (8.4-10.2) mg/dL Magnesium (1.6-2.6) mg/dL Total Bilirubin (0.0-1.0) mg/dL Direct Bilirubin (0.0-0.5) mg/dL AST (5-31) U/L ALT (0-31) U/L Alkaline Phosphatase (39-117) U/L Troponin I High Sens < 3.5 (<3.5-17.0) ng/L Total Protein (6.5-8.0) g/dL Albumin (3.5-5.0) g/dL Lipase (8-78) U/L Urine Color Yellow Urine Appearance Clear Urine pH 5.5 (5.0-9.0) Ur Specific [place] 1.020 (1.005-1.025) Urine Protein Negative (Neg-Trace) mg/dL Urine Glucose (UA) Negative (Negative) mg/dL Urine Ketones Negative (Negative) mg/dL Urine Blood Negative (Negative) Urine Nitrite Negative (Negative) Ur Leukocyte Esterase Negative (Negative) COVID-19 ([facility]) Negative (Negative) COVID-19 Clin Com See Note 06/15/22 Range/Units 19:09 WBC (4.8-10.8) X10*3/uL RBC (4.20-5.50) X10*6/uL Hgb (12.0-16.0) g/dl Hct (37.0-47.0) % MCV (80.0-98.0) fL MCH (27.0-33.0) pg MCHC (31.0-35.0) g/dl RDW (11.0-16.0) % Plt Count (160-400) X10*3/uL MPV (9.4-12.3) fL Immature Gran % (Auto) (0.0-0.4) % Neut % (Auto) (45-73) % Lymph % (Auto) (20-40) % Love % (Auto) (2-11) % Eos % (Auto) (0-4) % Baso % (Auto) (0-2) % Lymph # (Auto) (1.2-4.9) X10*3/uL Love # (Auto) (0.1-1.2) X10*3/uL Eos # (Auto) (0.0-0.4) X10*3/uL Baso # (Auto) (0.0-0.2) X10*3/uL Abs Immat Gran (auto) (0.00-0.03) X10*3/uL Absolute Neuts (auto) (2.0-8.3) x10*3/uL Absolute Nucleated RBC (0.0-0.012) X10*3/uL Nucleated RBC % (auto) (0.0-0.2) /100WBC PT (10.0-13.1) SEC INR (0.9-1.1) Sodium (135-145) mmol/L Potassium (3.3-5.1) mmol/L Chloride (96-108) mmol/L Carbon Dioxide (22-29) mmol/L Anion Gap (12-20) BUN (9-16) mg/dL Creatinine (0.5-1.4) mg/dL Estim Creat Clear Calc Estimated GFR POC Glucose 66 (60-115) mg/dL Random Glucose (60-115) mg/dL Calcium (8.4-10.2) mg/dL Magnesium (1.6-2.6) mg/dL Total Bilirubin (0.0-1.0) mg/dL Direct Bilirubin (0.0-0.5) mg/dL AST (5-31) U/L ALT (0-31) U/L Alkaline Phosphatase (39-117) U/L Troponin I High Sens (<3.5-17.0) ng/L Total Protein (6.5-8.0) g/dL Albumin (3.5-5.0) g/dL Lipase (8-78) U/L Urine Color Urine Appearance Urine pH (5.0-9.0) Ur Specific [place] (1.005-1.025) Urine Protein (Neg-Trace) mg/dL Urine Glucose (UA) (Negative) mg/dL Urine Ketones (Negative) mg/dL Urine Blood (Negative) Urine Nitrite (Negative) Ur Leukocyte Esterase (Negative) COVID-19 ([facility]) (Negative) COVID-19 Clin Com <Joanie Abbott MD - Last Filed: 06/15/22 22:32> Imaging Data CT scan - abdomen: Radiologist's impression: FINDINGS: LUNG BASES: Minimal lingular subsegmental atelectasis.? LIVER, GALLBLADDER, AND BILIARY TREE: Mild hepatic hypoattenuation/steatosis. No liver lesion. No biliary ductal dilation. The gallbladder is unremarkable with no evidence of radiopaque gallstones, gallbladder wall thickening, or obvious pericholecystic inflammatory changes.? PANCREAS: Mild dilation of the distal pancreatic duct at the pancreatic head, unchanged. No pancreatic lesion or peripancreatic inflammatory change. SPLEEN: Unremarkable.? ADRENAL GLANDS: Unremarkable.? KIDNEYS AND URETERS: Symmetric nephrograms. No hydronephrosis or renal calculi. No perinephric stranding. There several small sub-5 mm hypodense bilateral renal lesions, too small to characterize and likely tiny cysts. No further follow-up recommended.? BLADDER: Unremarkable.? GASTROINTESTINAL TRACT: Mild scattered colonic diverticulosis. No evidence of acute diverticulitis. No dilated bowel loops. No bowel wall thickening. Normal appendix. No ascites or free air.? ABDOMINAL WALL: Tiny fat-containing umbilical hernia. Small bubbles of subcutaneous gas and stranding in the left lower quadrant abdominal wall consistent with injection site.? LYMPH NODES: No lymphadenopathy. VASCULAR: Normal caliber abdominal aorta. Mild to moderate vascular calcifications. PELVIC VISCERA: Gynecologic structures grossly unremarkable.? OSSEOUS STRUCTURES: No acute fracture or suspicious osseous lesion.? CT/CT abdomen pelvis w IV con IMPRESSION: 1.? No evidence of acute appendicitis or other acute intra-abdominal process. 2.? Mild colonic diverticulosis. No evidence of acute diverticulitis. 3.? Mild hepatic steatosis. ? ? <Joanie Abbott MD - Last Filed: 06/15/22 22:32> Discharge Plan Discharge Clinical Impression: Abdominal bloating, Hypoglycemia <JOSE JUAN Leonadr - Last Filed: 06/15/22 14:09> Patient Disposition: Home, Self-Care <JOSE JUAN Leonard - Last Filed: 06/15/22 14:09> Instructions: Hypoglycemia in a Person with Diabetes (ED) <JOSE JUAN Leonard - Last Filed: 06/15/22 14:09> Additional Instructions: Please decrease her Lantus to 30 units, on your insulin aspart to 3 units instead of 5. Please follow-up with your primary care physician tomorrow. If you have any worsening or new symptoms, please return to the emergency room or call 911 <JOSE JUAN Leonard - Last Filed: 06/15/22 14:09> Prescriptions: New Glucagon Emergency Kit (human) 1 mg recon soln 1 mg subcut Q20M PRN (Reason: hypoglycemia) Qty: 1 0RF Rx Instructions: until target blood sugar attained No Action calcium carbonate-vitamin D3 600 mg(1,500mg) -800 unit tablet 1 tab PO DAILY ramelteon 8 mg tablet 8 mg PO BEDTIME trazodone 100 mg tablet 100 mg PO QPM gabapentin 800 mg tablet PO cetirizine 10 mg tablet 10 mg PO DAILY Lantus U-100 Insulin 100 unit/mL solution 36 unit subcut DAILY metformin 1,000 mg tablet 1,000 mg PO BID simvastatin 20 mg tablet 20 mg PO BEDTIME insulin aspart U-100 100 unit/mL solution 5 unit subcut TID enalapril maleate 20 mg tablet 20 mg PO DAILY prednisone 20 mg tablet See Rx Instructions PO DAILY Qty: 7 0RF Rx Instructions: 3 tabs for 1 day, 2 tabs for 2 days, 1 tab 2 days PO daily; insulin lispro [Humalog U-100 Insulin] 100 unit/mL solution subcut (DME) blood-glucose meter [OneTouch Verio Flex meter] Misc See Rx Instructions .ROUTE DAILY Qty: 1 Rx Instructions: As directed (DME) insulin syringe-needle U-100 0.3 mL 31 gauge x 5/16 syringe See Rx Instructions .ROUTE QID Qty: 10 Rx Instructions: As directed (DME) OneTouch Verio test strips Strip See Rx Instructions .ROUTE BID Qty: 10 Rx Instructions: As directed omeprazole 40 mg capsule,delayed release(DR/EC) 40 mg PO BID Qty: 60 6RF simethicone 180 mg capsule 180 mg PO TID Qty: 90 6RF bisacodyl [Dulcolax (bisacodyl)] 5 mg tablet,delayed release (DR/EC) 10 mg PO BEDTIME 30 Days Qty: 60 6RF <JOSE JUAN Leonard - Last Filed: 06/15/22 14:09>
--- NOTE | 2022-06-15 14:04 | ECG_ITS ---
Test Reason : syncope Blood Pressure : / mmHG Vent. Rate : 099 BPM Atrial Rate : 100 BPM P-R Int : 150 ms QRS Dur : 070 ms QT Int : 346 ms P-R-T Axes : 051 024 064 degrees QTc Int : 444 ms Normal sinus rhythm Normal ECG No previous ECGs available Referred By: Zena Oliveira Electronically Signed By:PEREZ KEY MD
[2022-06-15 14:45] LABS: MANUAL DIFF FLAG NO
[2022-06-15 14:53] LABS: Basophils Percent Auto 0.4 % (0-2); Eosinophils Absolute Auto 0.2 X10*3/uL (0.0-0.4); Eosinophils Percent Auto 2.8 % (0-4); Hematocrit 33.9 % (37.0-47.0); Hemoglobin 10.4 g/dl (12.0-16.0); Imm Gran Abs Auto 0.02 X10*3/uL (0.00-0.03); Imm Gran Pct Auto 0.3 % (0.0-0.4); Lymphocytes Absolute Auto 2.1 X10*3/uL (1.2-4.9); Lymphocytes Percent Auto 28.9 % (20-40); Mean Corpuscular HGB Conc 30.7 g/dl (31.0-35.0); Mean Corpuscular Hemoglobin 25.5 pg (27.0-33.0); Mean Corpuscular Volume 83.1 fL (80.0-98.0); Mean Platelet Volume 8.8 fL (9.4-12.3); Monocytes Absolute Auto 0.6 X10*3/uL (0.1-1.2); Monocytes Percent Auto 7.7 % (2-11); Neutrophils Absolute Auto 4.3 x10*3/uL (2.0-8.3); Neutrophils Percent Auto 59.9 % (45-73); Platelet Count 367 X10*3/uL (160-400); Red Blood Count 4.08 X10*6/uL (4.20-5.50); Red Cell Distribution Width 16.2 % (11.0-16.0); White Blood Count 7.2 X10*3/uL (4.8-10.8)
[2022-06-15 15:00] LABS: INTERNATIONAL NORM RATIO 0.9 (0.9-1.1); Prothrombin Time 10.8 SEC (10.0-13.1)
[2022-06-15 15:04] LABS: COVID-19 Test Negative (Negative)
[2022-06-15 15:07] LABS: Alanine Aminotransferase 18 U/L (0-31); Albumin Level 4.4 g/dL (3.5-5.0); Alkaline Phosphatase 75 U/L (39-117); Anion Gap 19 (12-20); Aspartate Amino Transferase 20 U/L (5-31); Bilirubin Direct < 0.2 mg/dL (0.0-0.5); Bilirubin Total 0.2 mg/dL (0.0-1.0); Blood Urea Nitrogen 13 mg/dL (9-16); Carbon Dioxide 23 mmol/L (22-29); Chloride 101 mmol/L (96-108); Creatinine Clr Calc Pharmacy 53.7; Estimated Glomerular Filt Rate > 60; Glucose Random 78 mg/dL (60-115); Lipase 31 U/L (8-78); Magnesium 1.6 mg/dL (1.6-2.6); Potassium 5.2 mmol/L (3.3-5.1); Sodium 138 mmol/L (135-145); Total Protein 7.6 g/dL (6.5-8.0)
[2022-06-15 15:13] LABS: Troponin-I High Sensitivity < 3.5 ng/L (<3.5-17.0)
[2022-06-15 17:49] VITALS: BP 140/71; PULSE 106; RESP 18; O2SAT 97
[2022-06-15 18:25] LABS: Appearance Urine Clear; Color Urine Yellow; Glucose Urine UA Negative (Negative); Leukocyte Esterase Urine Negative (Negative); Nitrite Urine Negative (Negative); PH 5.5 (5.0-9.0); Urine Blood Negative (Negative); Urine Ketones Negative (Negative); Urine Protein Negative (Neg-Trace)
[2022-06-15] MEDS: Famotidine/PF 20 MG/2 ML VIAL IVPUSH (19:03)
[2022-06-15] MEDS: Magnesium Hydrox/Alum Hydrox 30 ML ORAL.SUSP PO (19:03)
[2022-06-15] MEDS: Sodium Zirconium Cyclosilicate 5 GM POWD.PACK PO (19:03)
[2022-06-15 19:13] LABS: Glucose, Whole Blood 66 mg/dL (60-115)
[2022-06-15 19:27] VITALS: BP 138/64; PULSE 97; RESP 16; TEMP 36.9; O2SAT 98
[2022-06-15] MEDS: iohexoL 350 MG/ML 100 ML INFUS..BTL IV (20:04)
--- NOTE | 2022-06-15 22:01 | PC.NURSE ---
pt states that they are feeling better and is ready for discharge.
== END 2022-06-15 22:47 | disposition home or self-care (01) ==
PROVIDERS: Physician Assistant; Emergency Provider Emergency Medicine; PCP Internal Medicine
DX: R10.13 Epigastric pain (principal); R10.9 Unspecified abdominal pain; R55 Syncope and collapse; Z20.822 Contact with and (suspected) exposure to COVID-19; Z79.899 Other long term (current) drug therapy
CPT/HCPCS: 36415; 71045; 74177; 80048; 80076; 81003; 82947; 83690; 83735; 84484; 85025; 85610; 87635; 93005; 96374; 99284; Q9967

== ENCOUNTER 2022-11-15 14:01 | Outpatient (REF) | payer OTHER, SELFPAY ==
--- NOTE | ~2022-11-15 | MM_ITS ---
EXAMINATION: MM SCREENING DIGITAL BREAST TOMOSYNTHESIS, BILATERAL CLINICAL INFORMATION: Screening. Asymptomatic. The lifetime risk of breast cancer based on the Tyrer-Cuzick Model is 2.3%. COMPARISON: Mammography: October 24, 2021 and studies dating back to August 27, 2017 TECHNIQUE: Digital breast tomosynthesis is performed in both the craniocaudal and mediolateral oblique views along with computer-aided detection (CAD). Synthesized 2D images are generated from the tomosynthesis. FINDINGS: There are scattered areas of fibroglandular density (ACR BI-RADS breast composition Category b). There are no significant masses, abnormal calcifications, or other abnormalities. MM/MM tomosynthesis screening BI IMPRESSION: No significant changes from prior exam. ASSESSMENT: BI-RADS 1: Negative RECOMMENDATION: Routine annual mammography screening. This patient's information was entered into a reminder system with a target due date for their next mammogram.
== END 2022-11-15 14:02 | disposition home or self-care (01) ==
LOC: HO.MAMMO 14:01
PROVIDERS: PCP Internal Medicine; Visit Provider Advanced Practice Midwife
DX: Z12.31 Encounter for screening mammogram for malignant neoplasm of breast (principal)
CPT/HCPCS: 77063; 77067

== ENCOUNTER → 2022-11-28 14:46 | Outpatient (BNVA) | payer OTHER, SELFPAY | PROVIDERS: PCP Internal Medicine; Visit Provider Nurse Practitioner | DX: K21.9 Gastro-esophageal reflux disease without esophagitis (principal); K59.04 Chronic idiopathic constipation; R14.0 Abdominal distension (gaseous); R11.2 Nausea with vomiting, unspecified | CPT/HCPCS: 99212 ==

== ENCOUNTER → 2023-01-02 14:53 | Outpatient (BNVA) | payer OTHER, SELFPAY | PROVIDERS: PCP Internal Medicine; Visit Provider Nurse Practitioner | DX: K59.04 Chronic idiopathic constipation (principal); K21.9 Gastro-esophageal reflux disease without esophagitis; R14.0 Abdominal distension (gaseous) | CPT/HCPCS: 99212 ==

== ENCOUNTER 2023-04-10 14:24 | Outpatient (AMB) | payer OTHER, SELFPAY ==
[2023-04-10 14:30] VITALS: BP 120/62; PULSE 92; BMI 24.0
--- NOTE | 2023-04-10 14:30 | MHC.OFFVIS ---
Intake Vital Signs 04/10/23 14:30 Height 5 ft 4 in Weight 139 lb 12.369 oz BMI 24.0 BP 120/62 Blood Pressure Location Rt brachial Position Sitting Pulse 92 Intake Visit Reasons: Follow up 3 months Intake Note: Patient presents to in office visit today in follow up of GERD. CC: Patient reports she doing well and denies new GI symptoms or concerns. Clinical Cytogenetics Director Required: Yes Clinical Cytogenetics Director Language: Albanian Allergies No Known Allergies [No Known Allergies*] Allergy (Verified 04/10/23 14:31) HPI Follow up 3 months HPI Details Assessment & Plan (1) Chronic idiopathic constipation: Code(s): K59.04 - Chronic idiopathic constipation Plan: NAURUAN #[id number], Tamiko She says she is doing well on the Linzess and she feels that 145mcg dose is just right. This has also resolved her complaints of worsening GERD, so we will keep her current regimen of omeprazole and simethicone. ROV 3 mos. (2) GERD (gastroesophageal reflux disease): Code(s): K21.9 - Gastro-esophageal reflux disease without esophagitis (3) Abdominal bloating: Code(s): R14.0 - Abdominal distension (gaseous) TODAY'S VISIT NAURUAN #Latrice Townsend She continues to do well. The regimen of Linzess 145 micro g along with omeprazole and simethicone is well controlling her symptoms and she remains satisfied with her GI regimen. Return office visit in 6 months. [facility] Medical History Type 2 diabetes Surgical History (Updated 04/10/23 @ 14:52 by SLADE Ball) Hx of cataract surgery History of esophagogastroduodenoscopy (EGD) Hx of colonoscopy Social History Household Members: Spouse Alcohol intake: never Current occupational status: retired Review of Systems Const Denies fatigue, Denies fever(s), Denies night sweats, Denies poor appetite and Denies weight loss Eyes Details: glasses Reports requires corrective lenses ENT Reports Normal hearing present, Denies dental pain, Denies dysphagia, Denies hearing loss, Denies mouth pain, Denies odynophagia, Denies throat swelling, Denies tongue swelling and Reports other (Dentition adequate) Card Reports no additional complaints Resp Reports no additional complaints GI Denies abdominal pain, Denies melena, Reports bloating, Denies hematochezia, Reports constipation, Denies GI cramping, Denies dysphagia, Denies excessive flatus, Denies early satiety, Reports heartburn, Denies diarrhea, Denies nausea, Denies odynophagia, Denies vomiting and Denies hematemesis Skin/Breast Denies pruritus, Denies lesions, Denies rash and Denies jaundice Neuro Reports Normal hearing present and Denies Abnormal speech present Endo Denies fatigue Aller/Immun Denies throat swelling and Denies tongue swelling Physical Exam Vital Signs: Last Vital Signs Pulse 92 04/10/23 14:30 BP 120/62 04/10/23 14:30 BMI result Body Mass Index 24.0 Const General: cooperative, no acute distress, well developed and well groomed Nutritional Appearance: average body habitus and well nourished Orientation/consciousness: oriented to person, oriented to place and oriented to time Limitations: No language barrier HEENT Head: Yes normocephalic and Yes atraumatic Eyes General: appearance normal, both eyes and all related structures Pupils: Equal, round and reactive pupils present Neck Neck: Yes normal visual inspection and Yes no lymphadenopathy Thyroid: Thyroid normal Resp Effort & Inspection: normal respiratory effort and able to speak in complete sentences Auscultation: clear to auscultation bilaterally Cardio Rate: regular rate Rhythm: regular rhythm Heart sounds: Normal, physiologic split S2 sound present Peripheral pulses: radial pulses present and posterior tibial pulses present GI Inspection: No distended and No Abdominal panniculus present Palpation (GI): Soft to palpation, nontender, no guarding, not rigid and No hepatosplenomegaly present Percussion: Yes normal to percussion Auscultation: normal bowel sounds Rectal Exam - Female: deferred Skin General skin exam: no rashes or lesions noted, turgor normal, skin not dry, no jaundice, No spider nevi and no striae Rashes: no rashes Nails: normal Neuro General: oriented to person, oriented to place and oriented to time Cranial nerves: Yes Equal, round and reactive pupils present and Yes Normal hearing present Speech: No Abnormal speech present Extrem General: Yes normal to inspection, No clubbing, No cyanosis and No edema Psych Appearance: grossly normal and well kempt Mental Status: mental status grossly normal Speech and movement: Normal speech and movement present Affect: normal affect Attitude: cooperative Thought process: Normal thought process present and not confabulating Thought content: Normal thought content present Insight: Fair insight present (Psych) Judgement: Fair judgement present (Psych) Assessment & Plan Assessment & Plan (1) Chronic idiopathic constipation: Code(s): K59.04 - Chronic idiopathic constipation Plan: NAURUAN #Latrice Live She continues to do well. The regimen of Linzess 145 micro g along with omeprazole and simethicone is well controlling her symptoms and she remains satisfied with her GI regimen. Return office visit in 6 months. (2) GERD (gastroesophageal reflux disease): Code(s): K21.9 - Gastro-esophageal reflux disease without esophagitis (3) Abdominal bloating: Code(s): R14.0 - Abdominal distension (gaseous) Medications: Refilled simethicone 180 mg PO TID 90 caps 6RF R14.0 - Abdominal distension (gaseous) linaclotide (Linzess) 145 mcg PO QAM 30 caps 6RF omeprazole 40 mg PO BID 60 caps 6RF K21.9 - Gastro-esophageal reflux disease without esophagitis Coding Level of Care Code Est Pt Level 3 (92548) Diagnoses Chronic idiopathic constipation K59.04 GERD (gastroesophageal reflux disease) K21.9 Abdominal bloating R14.0
== END 2023-04-10 14:54 | disposition home or self-care (01) ==
PROVIDERS: PCP Internal Medicine; Visit Provider Nurse Practitioner
DX: K59.04 Chronic idiopathic constipation (principal); K21.9 Gastro-esophageal reflux disease without esophagitis; R14.0 Abdominal distension (gaseous)
CPT/HCPCS: 99213

== ENCOUNTER → 2023-04-10 14:24 | Outpatient (BNVA) | payer OTHER, SELFPAY | PROVIDERS: PCP Internal Medicine; Visit Provider Nurse Practitioner | DX: K59.04 Chronic idiopathic constipation (principal); K21.9 Gastro-esophageal reflux disease without esophagitis; R14.0 Abdominal distension (gaseous); Z79.899 Other long term (current) drug therapy | CPT/HCPCS: 99212 ==

== ENCOUNTER 2023-07-09 13:41 | Emergency (ER) | payer OTHER, SELFPAY ==
[2023-07-09 13:45] VITALS: BP 149/83; PULSE 104; RESP 14; TEMP 35.9; O2SAT 98; BMI 26.8
--- NOTE | 2023-07-09 13:46 | ED.GENADULT ---
HPI - General Adult General Chief complaint: Ear Problems Stated complaint: L ear pain Time Seen by Provider: 07/09/23 13:53 History of Present Illness HPI narrative: Patient complains of left ear feeling blocked denies ear pain denies fever denies trauma denies headache denies stiff neck Related Data Home Medications Medication Instructions Recorded Confirmed calcium carbonate 600 mg-vitamin 1 tab PO DAILY 12/10/20 12/10/20 D3 20 mcg (800 unit) tablet cetirizine 10 mg tablet 10 mg PO DAILY 12/10/20 12/10/20 enalapril maleate 20 mg tablet 20 mg PO DAILY 12/10/20 12/10/20 gabapentin 800 mg tablet mg PO 12/10/20 12/10/20 insulin aspart U-100 100 unit/mL 5 unit subcut TID 12/10/20 12/10/20 subcutaneous solution metformin 1,000 mg tablet 1,000 mg PO BID 12/10/20 12/10/20 ramelteon 8 mg tablet 8 mg PO BEDTIME 12/10/20 12/10/20 simvastatin 20 mg tablet 20 mg PO BEDTIME 12/10/20 12/10/20 trazodone 100 mg tablet 100 mg PO QPM 12/10/20 12/10/20 blood sugar diagnostic (OneTouch #10 ea 06/02/22 Verio test strips) blood-glucose meter (OneTouch #1 ea 06/02/22 Verio Flex Meter) dulaglutide 0.75 mg/0.5 mL mg subcut QWEEK 11/28/22 subcutaneous pen injector (Trulicity) insulin lispro 100 unit/mL 25 unit subcut BEDTIME 04/10/23 subcutaneous solution (Humalog U-100 Insulin) Previous Rx's Medication Instructions Recorded bisacodyl 5 mg tablet,delayed 10 mg (2 x 5 mg) PO BEDTIME 30 06/02/22 release (Dulcolax (bisacodyl)) days #60 tabs glucagon 1 mg solution for 1 mg subcut Q20M PRN hypoglycemia 06/15/22 injection (Glucagon Emergency Kit) #1 ea linaclotide 145 mcg capsule 145 mcg PO QAM #30 caps 04/10/23 (Linzess) omeprazole 40 mg capsule,delayed 40 mg PO BID #60 caps 04/10/23 release simethicone 180 mg capsule 180 mg PO TID #90 caps 04/10/23 Allergies Allergy/AdvReac Type Severity Reaction Status Date / Time No Known Allergies Allergy Verified 04/10/23 14:31 [No Known Allergies*] [facility] Past Medical History Source: nursing notes reviewed Medical History (Updated 07/09/23 @ 14:15 by JOSE JUAN Us) Type 2 diabetes Surgical History (Updated 04/10/23 @ 14:52 by SLADE Ball) Hx of cataract surgery History of esophagogastroduodenoscopy (EGD) Hx of colonoscopy Social History Social History Household Members: Spouse Alcohol intake: never Advance Directives: No Advance Directives Information Provided: Yes Current occupational status: retired Physical Exam ED Vital Signs: Vital Signs - 24 hr 07/09/23 13:45 Temperature 96.6 F L Pulse Rate 104 H Respiratory Rate 14 Blood Pressure 149/83 H Pulse Oximetry 98 Oxygen Delivery Method Room Air BMI result Body Mass Index 26.8 General appearance comfortable cheerful cooperative no acute distress The eyes are normal no redness or discharge The ears both ears the tympanic membrane was obscured by wax, there was no pain with movement of the ear Neck is supple Respiratory no distress Extremities range motion x4 Skin no rash Course Course Course Narrative: Patient complains of left ear muffled and feeling blocked There appears to be wax in left ear The left ear was irrigated with saline with removal of the wax and good visibility of tympanic membrane which was a pinkish white in color and did not appear red, there were no perforations of the TM, canal was pain movement of the ear was nontender, mastoid area was nontender not red After removal of the wax patient could hear out of the ear but decreased relative to the right side so there was a hearing deficit and she is advised to follow with an ENT doctor to evaluate her hearing at this time there is no sign of infection or perforation Discharge Plan Discharge Clinical Impression: Hearing loss in left ear, Impacted ear wax Patient Disposition: Home, Self-Care Additional Instructions: I cleaned wax out of the ear and even though your hearing was somewhat improved it was still less than the other side and not normal for you Because of the hearing loss we recommend to follow with an ear nose and throat doctor, and ear doctor for evaluation of her hearing and further evaluation of your ear Return any time any worse condition or any concerns Prescriptions: No Action Glucagon Emergency Kit (human) 1 mg recon soln 1 mg subcut Q20M PRN (Reason: hypoglycemia) Qty: 1 0RF Rx Instructions: until target blood sugar attained calcium carbonate-vitamin D3 600 mg(1,500mg) -800 unit tablet 1 tab PO DAILY ramelteon 8 mg tablet 8 mg PO BEDTIME trazodone 100 mg tablet 100 mg PO QPM gabapentin 800 mg tablet PO cetirizine 10 mg tablet 10 mg PO DAILY metformin 1,000 mg tablet 1,000 mg PO BID simvastatin 20 mg tablet 20 mg PO BEDTIME insulin aspart U-100 100 unit/mL solution 5 unit subcut TID enalapril maleate 20 mg tablet 20 mg PO DAILY Trulicity 0.75 mg/0.5 mL pen injector subcut QWEEK (DME) blood-glucose meter [OneTouch Verio Flex meter] Misc See Rx Instructions .ROUTE DAILY Qty: 1 Rx Instructions: As directed (DME) OneTouch Verio test strips Strip See Rx Instructions .ROUTE BID Qty: 10 Rx Instructions: As directed bisacodyl [Dulcolax (bisacodyl)] 5 mg tablet,delayed release (DR/EC) 10 mg PO BEDTIME 30 Days Qty: 60 6RF insulin lispro [Humalog U-100 Insulin] 100 unit/mL solution 25 unit subcut BEDTIME Linzess 145 mcg capsule 145 mcg PO QAM Qty: 30 6RF simethicone 180 mg capsule 180 mg PO TID Qty: 90 6RF omeprazole 40 mg capsule,delayed release(DR/EC) 40 mg PO BID Qty: 60 6RF Referrals: Shoaib Arambula [Physician] - (Left ear hearing loss)
== END 2023-07-09 14:23 | disposition home or self-care (01) ==
PROVIDERS: Emergency Provider Emergency Medicine; PCP Internal Medicine
DX: H91.92 Unspecified hearing loss, left ear (principal); H61.21 Impacted cerumen, right ear; E11.9 Type 2 diabetes mellitus without complications; Z79.4 Long term (current) use of insulin
CPT/HCPCS: 69209; 99282; 99283

== ENCOUNTER 2023-08-28 12:33 | Emergency (ER) | payer OTHER, SELFPAY ==
[2023-08-28 12:36] VITALS: BP 144/73; PULSE 95; RESP 16; TEMP 35.8; O2SAT 98; BMI 24.8
--- NOTE | 2023-08-28 12:41 | ED_ITS ---
HPI - General Adult General Chief complaint: Ear Problems Stated complaint: ear pain Time Seen by Provider: 08/28/23 14:43 Source: patient, RN notes reviewed and turkey cleaner Limitations: no limitations and language barrier History of Present Illness HPI narrative: This is a 72 year old female presenting to the emergency department for evaluation of left ear blockage x 3 weeks. Patient states that she was previously seen in June for her ear being blocked, this was flushed and this provided her with relief. She states that she has a appointment with ear nose and throat in about a month however reports over the last several weeks she has had increased difficulty hearing out of her left ear. She denies any ear pain, fevers, chills, ear drainage, headaches, dizziness, chest pain or shortness of breath. No other complaints are concerns at this time. MD complaint: Left ear blockage Onset (ago): week(s) Radiation: non-radiation Relieving factors: none Exacerbating factors: none Associated symptoms: denies other symptoms Treatments prior to arrival: none Related Data Home Medications Medication Instructions Recorded Confirmed calcium carbonate 600 mg-vitamin 1 tab PO DAILY 12/10/20 12/10/20 D3 20 mcg (800 unit) tablet cetirizine 10 mg tablet 10 mg PO DAILY 12/10/20 12/10/20 enalapril maleate 20 mg tablet 20 mg PO DAILY 12/10/20 12/10/20 gabapentin 800 mg tablet mg PO 12/10/20 12/10/20 insulin aspart U-100 100 unit/mL 5 unit subcut TID 12/10/20 12/10/20 subcutaneous solution metformin 1,000 mg tablet 1,000 mg PO BID 12/10/20 12/10/20 ramelteon 8 mg tablet 8 mg PO BEDTIME 12/10/20 12/10/20 simvastatin 20 mg tablet 20 mg PO BEDTIME 12/10/20 12/10/20 trazodone 100 mg tablet 100 mg PO QPM 12/10/20 12/10/20 blood sugar diagnostic (OneTouch #10 ea 06/02/22 Verio test strips) blood-glucose meter (OneTouch #1 ea 06/02/22 Verio Flex Meter) dulaglutide 0.75 mg/0.5 mL mg subcut QWEEK 11/28/22 subcutaneous pen injector ([facility]) insulin lispro 100 unit/mL 25 unit subcut BEDTIME 04/10/23 subcutaneous solution (Humalog U-100 Insulin) Previous Rx's Medication Instructions Recorded bisacodyl 5 mg tablet,delayed 10 mg (2 x 5 mg) PO BEDTIME 30 06/02/22 release (Dulcolax (bisacodyl)) days #60 tabs glucagon 1 mg solution for 1 mg subcut Q20M PRN hypoglycemia 06/15/22 injection (Glucagon Emergency Kit) #1 ea linaclotide 145 mcg capsule 145 mcg PO QAM #30 caps 04/10/23 (Linzess) omeprazole 40 mg capsule,delayed 40 mg PO BID #60 caps 04/10/23 release simethicone 180 mg capsule 180 mg PO TID #90 caps 04/10/23 Allergies Allergy/AdvReac Type Severity Reaction Status Date / Time No Known Allergies Allergy Verified 04/10/23 14:31 [No Known Allergies*] Review of Systems Review of Systems: Yes all other systems are reviewed and are negative [facility] Past Medical History Medical History (Updated 08/29/23 @ 00:00 by Harsha Barbosa) Type 2 diabetes Surgical History (Updated 04/10/23 @ 14:52 by SLADE Ball) Hx of cataract surgery History of esophagogastroduodenoscopy (EGD) Hx of colonoscopy Social History Social History Household Members: Spouse Alcohol intake: never Smoked in Last 30 Days: No Advance Directives: No Advance Directives Information Provided: Yes Current occupational status: retired Physical Exam ED Vital Signs: Vital Signs - 24 hr 08/28/23 12:36 Temperature 96.5 F L Pulse Rate 95 Respiratory Rate 16 Blood Pressure 144/73 H Pulse Oximetry 98 Oxygen Delivery Method Room Air BMI result Body Mass Index 24.8 General: Awake, alert, and oriented X3. No acute distress. HEENT: BL tm obscurd by wax, once removed no canal erythema, edema, or TM perforation. Normal inspection CVS: Normal heart rate and rhythm. Pulses normal. Respiratory: No respiratory distress Skin: Warm, dry, no rashes noted to exposed skin. Normal skin color. Normal skin turgor. Extremities: Normal to inspection Neuro: Oriented X 3. No motor deficit. No sensory deficit. Course Course Course Narrative: RME- 72-year-old female presents for evaluation of left ear pain and feeling like it is blocked. She was here a month and a half ago and was referred to ENT, she has not yet followed up with ENT. She appears to have cerumen impaction of the left ear. TM is not visualized Medications Administered Discontinued Medications Generic Name Dose Route Start Last Admin Trade Name Leslie PRN Reason Stop Dose Admin Docusate Sodium 100 mg 08/28/23 14:53 08/28/23 16:19 Docusate Sodium 100 Mg/10 Ml Liquid PO 08/28/23 14:54 100 mg ONCE ONE Administration Procedures Ear Wax Removal Both Ears: Cerumenolytic Used: Colace and 5-10% Sodium Bicarb solution Results: Re-examined: cerumen removed completely (out of left ear), some cerumen remains (in right ear) and removal reattempted TM Examination: TM(s) intact, normal appearance Ear Canal Exam: atraumatic Patient Tolerated Procedure: well and no complications Complications: no problems Technique: ear canal irrigated and ear canal curetted Medical Decision Making Medical Decision Making [facility] Narrative: 72 year old Macedonian speaking female presenting to the emergency department for left ear blockage x 3 weeks. Patient was previously seen in June for similar symptoms had ear flushed and was advised to follow up with ENT given decreased hearing from left ear. On arrival, patient non-toxic appearing, complaining of no ear pain however reporting left ear blockage. Physical exam findings revealing bilateral cerumen impaction requiring irrigation. Bilateral ears irrigated with all serum and removed from left ear, right ear cerumen still remains. TM's do not appear to be ruptured, patient tolerated procedure well without any complications. See procedure note for further detail. I discussed with patients who continue using debrox ?in right ear to help express more serum in out of the right ear canal. Also educated the importance of following up with ear nose and throat. She understands and agrees with plan. Patient stable for discharge. Differential Diagnosis Differential Diagnoses: The differential diagnosis associated with the presentation includes OM, OE, cerumen impaction, TM perforation Discharge Plan Discharge Clinical Impression: Cerumen impaction Patient Disposition: Home, Self-Care Additional Instructions: Your seen in the emergency department due to a cerumen impaction. We flushed your ears, and a lot of cerumen was expressed from your ears. Please continue using debrox in your right ear for the next several days as we had loosen the ear wax, this may come out in the next couple of days. If any new or worsening symptoms occur including but not limited to fevers, chills, changes in hearing, drainage, please return for re-evaluation. Please follow-up with the nuclear waste management engineer as scheduled. Lo atendieron en el departamento de emergencias debido a diomedes impactaci?n de cerumen. Le lavamos los o?dos y sali? mucho cerumen de mary o?dos. Contin?e usando debrox en [place] o?do derecho mohsen los pr?ximos d?as, ya que hemos aflojado la cera del o?do; esto puede salir en los pr?ximos d?as. Si se presenta alg?n s?ntoma nuevo o que empeora, incluidos, entre otros, fiebre, escalofr?os, cambios en la audici?n, drenaje, regrese para diomedes reevaluaci?n. Hai un seguimiento con el otorrinolaring?logo seg?n lo programado. Prescriptions: No Action Glucagon Emergency Kit (human) 1 mg recon soln 1 mg subcut Q20M PRN (Reason: hypoglycemia) Qty: 1 0RF Rx Instructions: until target blood sugar attained calcium carbonate-vitamin D3 600 mg(1,500mg) -800 unit tablet 1 tab PO DAILY ramelteon 8 mg tablet 8 mg PO BEDTIME trazodone 100 mg tablet 100 mg PO QPM gabapentin 800 mg tablet PO cetirizine 10 mg tablet 10 mg PO DAILY metformin 1,000 mg tablet 1,000 mg PO BID simvastatin 20 mg tablet 20 mg PO BEDTIME insulin aspart U-100 100 unit/mL solution 5 unit subcut TID enalapril maleate 20 mg tablet 20 mg PO DAILY Trulicity 0.75 mg/0.5 mL pen injector subcut QWEEK (DME) blood-glucose meter [OneTouch Verio Flex meter] Misc See Rx Instructions .ROUTE DAILY Qty: 1 Rx Instructions: As directed (DME) OneTouch Verio test strips Strip See Rx Instructions .ROUTE BID Qty: 10 Rx Instructions: As directed bisacodyl [Dulcolax (bisacodyl)] 5 mg tablet,delayed release (DR/EC) 10 mg PO BEDTIME 30 Days Qty: 60 6RF insulin lispro [Humalog U-100 Insulin] 100 unit/mL solution 25 unit subcut BEDTIME Linzess 145 mcg capsule 145 mcg PO QAM Qty: 30 6RF simethicone 180 mg capsule 180 mg PO TID Qty: 90 6RF omeprazole 40 mg capsule,delayed release(DR/EC) 40 mg PO BID Qty: 60 6RF Interventions: ED Discharge Assessment Last Done: 08/28/23 17:17 Discharge Date/Time: 08/28/23 17:17 Print Language: Macedonian
[2023-08-28] MEDS: Docusate Sodium 100 MG/10 ML LIQUID PO (16:19)
--- NOTE | 2023-08-28 17:17 | PC.NURSE ---
discharged by alexandra bain- alexandra bain stated did not need new vital signs prior to discharge by alexandra bain.
== END 2023-08-28 17:17 | disposition home or self-care (01) ==
PROVIDERS: Emergency Provider Emergency Medicine Emergency Medical Services; PCP Internal Medicine
DX: H92.02 Otalgia, left ear (principal); H61.23 Impacted cerumen, bilateral; Z79.899 Other long term (current) drug therapy
CPT/HCPCS: 69209; 99283; 99284

== ENCOUNTER 2024-01-08 11:21 | Outpatient (REF) | payer OTHER, SELFPAY ==
--- NOTE | ~2024-01-08 | MM_ITS ---
EXAMINATION: BONE DENSITOMETRY CLINICAL INDICATION: Osteopenia. COMPARISON: Previous BD dated 10/25/2021 and baseline BD dated 09/11/2017. TECHNIQUE: Using a [employer] DXA System (software version: 13.1) manufactured by [employer], dual-energy x-ray absorptiometry was performed of the lumbar spine and left hip. The images are of good technical quality. Summary results are attached. FINDINGS: LEFT FEMUR, NECK: Current: BMD 0.796 g/cm2, Z-score 0.2, T-score -1.7, osteopenia. Prior: BMD 0.727 g/cm2. Baseline: BMD 0.813 g/cm2. LEFT FEMUR, TOTAL: Current: BMD 0.840 g/cm2, Z-score 0.4, T-score -1.3, osteopenia, 4.3% increase from previous, 4.9% decrease from baseline (<5% change is not significant). Prior: BMD 0.805 g/cm2. Baseline: BMD 0.883 g/cm2. AP SPINE L1-L4: Current: BMD 0.916 g/cm2, Z-score -0.4, T-score -2.2, osteopenia, 7.6% decrease from previous, 1.0% decrease from baseline (<5% change is not significant). Prior: BMD 0.991 g/cm2. Baseline: BMD 0.925 g/cm2. IDENTIFIED RISK FACTORS: Menopause. HISTORY OF FRACTURE: None listed. MEDICATIONS: None listed. MM/XR DEXA axial skeleton IMPRESSION: 1. DIAGNOSIS: Osteopenia based on the lowest T-score value of -2.2 in the lumbar spine applying World Health Organization criteria. 2. 10-YEAR FRACTURE RISK PREDICTION, FRAX: Major osteoporotic fracture (clinical spine, forearm, hip or shoulder) 6.9%. Hip fracture 1.5%. 3. Treatment Recommendations: NOF guidelines recommend consideration for treatment in postmenopausal women and men age 50 and older presenting with the following: -A hip or vertebral (clinical or morphometric) fracture. -T-score less than or equal to -2.5 at the femoral neck or spine after appropriate evaluation to exclude secondary causes. -Low bone mass at the hip or spine and a 10-year fracture probability by FRAX of greater than or equal to 3% for hip fracture or greater than or equal to 20% for major osteoporotic fracture based on the [place] adapted WHO algorithm. 4. Other Recommendations: All treatment decisions require clinical judgment and consideration of individual patient factors, including patient preferences, comorbidities, previous drug use, risk factors not captured in the FRAX model (e.g. frailty, falls, vitamin D deficiency, increased bone turnover, interval significant decline in bone density) and possible under or overestimation of fracture risk by FRAX. Additional medical evaluation for secondary cause of low bone mineral density may be appropriate. FUTURE SCAN RECOMMENDATION: People with diagnosed cases of osteoporosis or at high risk for fracture should have regular bone mineral density tests. For patients eligible for Medicare, routine testing is allowed once every 2 years. The testing frequency can be increased to one year for patients who have rapidly progressing disease, those who are receiving or discontinuing medical therapy to restore bone mass, or have additional risk factors.
== END 2024-01-08 11:22 | disposition home or self-care (01) ==
LOC: HO.MAMMO 11:21
PROVIDERS: PCP Internal Medicine; Visit Provider Internal Medicine
DX: Z12.31 Encounter for screening mammogram for malignant neoplasm of breast (principal); Z13.820 Encounter for screening for osteoporosis; Z78.0 Asymptomatic menopausal state
CPT/HCPCS: 77063; 77067; 77080

== ENCOUNTER → 2024-01-08 11:30 | Outpatient (BNV) | payer OTHER, SELFPAY | PROVIDERS: PCP Internal Medicine; Visit Provider Radiology Diagnostic Radiology | DX: Z12.31 Encounter for screening mammogram for malignant neoplasm of breast (principal) | CPT/HCPCS: 77063; 77067 ==

== ENCOUNTER 2024-08-04 09:55 | Outpatient (REF) | payer OTHER, SELFPAY ==
[2024-08-04 11:58] LABS: Alanine Aminotransferase 18 U/L (0-31); Alkaline Phosphatase 75 U/L (39-117); Anion Gap 11 (12-20); Aspartate Amino Transferase 21 U/L (5-31); Bilirubin Total 0.2 mg/dL (0.0-1.0); Blood Urea Nitrogen 11 mg/dL (9-16); Calcium 9.6 mg/dL (8.4-10.2); Carbon Dioxide 29 mmol/L (22-29); Chloride 107 mmol/L (96-108); Cholesterol 172 mg/dL (<200); Estimated Glomerular Filt Rate > 60; Glucose Random 116 mg/dL (60-115); HDL Cholesterol 47 mg/dL (>40); LDL Cholesterol Calculated 96 mg/dL (<100); Potassium 4.9 mmol/L (3.3-5.1); Sodium 142 mmol/L (135-145); Total Protein 7.1 g/dL (6.5-8.0); Triglycerides 146 mg/dL (<150)
[2024-08-04 12:13] LABS: ~HepC Num1 0.13 S/CO (0.00-0.79); ~Hepatitis C Antibody Nonreactive (Nonreactive)
[2024-08-04 12:51] LABS: Creatinine Urine 161.95 mg/dL; Microalbum/Creatinine Ratio Ur 19.7 ug/mg cr (<30)
== END 2024-08-04 09:56 | disposition home or self-care (01) ==
LOC: HO.HHCL 09:55
PROVIDERS: Visit Provider Internal Medicine
DX: Z00.00 Encounter for general adult medical examination without abnormal findings (principal); E11.9 Type 2 diabetes mellitus without complications; Z79.4 Long term (current) use of insulin; E78.2 Mixed hyperlipidemia
CPT/HCPCS: 36415; 80053; 80061; 82043; 82570; 86803

== ENCOUNTER 2024-10-01 21:28 | Emergency (ER) | payer OTHER, SELFPAY ==
--- NOTE | ~2024-10-01 | XR_ITS ---
CLINICAL HISTORY: fall, swelling and pain 4 view right wrist Comparison: None Findings: Bones intact. No dislocations. Degenerative changes at the 1st carpometacarpal joint. No radiopaque foreign body. Bone mineralization is decreased. IMPRESSION: 1. No acute fracture identified. This document has been electronically signed by: Maurice Landers MD on 10/01/2024 22:33:39
[2024-10-01 21:42] VITALS: BP 143/66; PULSE 101; RESP 16; TEMP 36.2; O2SAT 95; BMI 22.3
[2024-10-01 23:10] VITALS: BP 135/65; RESP 98; TEMP 36.4; O2SAT 97
[2024-10-01] MEDS: Acetaminophen 325 MG TABLET 650 MG PO (23:12)
--- NOTE | 2024-10-02 00:52 | ED.GENADULT ---
HPI - General Adult General Chief complaint: Fall Stated complaint: face and hand injury, fall Time Seen by Provider: 10/02/24 00:52 History of Present Illness ED Provider: Cassandra CAMPBELL narrative: The patient is a 74-year-old woman who went outside to put some garbage in a trash can. It was raining. She turned and slipped on the wet pavement and fell forward hitting her face with no loss of consciousness. She is not on anticoagulation medication. She sustained some soft tissue swelling to the skin of her forehead and she sustained a laceration to the skin of the face just above the upper lip. She does not feel that she injured her teeth. She feels that her teeth are stable. She has no pain in the back of her neck or pain with moving her neck. In addition to landing on her face she also landed on her right hand and has some bruising on the palm. Related Data Home Medications ?Medication ?Instructions ?Recorded ?Confirmed calcium 600 mg (as 1 tab PO DAILY 12/10/20 12/10/20 carbonate)-vitamin D3 20 mcg (800 unit) tablet cetirizine 10 mg tablet 10 mg PO DAILY 12/10/20 12/10/20 enalapril maleate 20 mg tablet 20 mg PO DAILY 12/10/20 12/10/20 gabapentin 800 mg tablet mg PO 12/10/20 12/10/20 insulin aspart U-100 100 unit/mL 5 unit subcut TID 12/10/20 12/10/20 subcutaneous solution metformin 1,000 mg tablet 1,000 mg PO BID 12/10/20 12/10/20 ramelteon 8 mg tablet 8 mg PO BEDTIME 12/10/20 12/10/20 simvastatin 20 mg tablet 20 mg PO BEDTIME 12/10/20 12/10/20 trazodone 100 mg tablet 100 mg PO QPM 12/10/20 12/10/20 blood sugar diagnostic (OneTouch #10 ea 06/02/22 Verio test strips) blood-glucose meter (OneTouch #1 ea 06/02/22 Verio Flex Meter) dulaglutide 0.75 mg/0.5 mL mg subcut QWEEK 11/28/22 subcutaneous pen injector (Trulicity) insulin lispro 100 unit/mL 25 unit subcut BEDTIME 04/10/23 subcutaneous solution (Humalog U-100 Insulin) Previous Rx's ?Medication ?Instructions ?Recorded bisacodyl 5 mg tablet,delayed 10 mg (2 x 5 mg) PO BEDTIME 30 06/02/22 release (Dulcolax (bisacodyl)) days #60 tabs glucagon 1 mg solution for 1 mg subcut Q20M PRN hypoglycemia 06/15/22 injection (Glucagon Emergency Kit) #1 ea simethicone 180 mg capsule 180 mg PO TID #90 caps 04/10/23 linaclotide 145 mcg capsule 145 mcg PO QAM #30 caps 12/26/23 (Linzess) omeprazole 40 mg capsule,delayed 40 mg PO BID #60 caps 12/26/23 release cephalexin 500 mg capsule 500 mg PO QID 3 days #12 caps 10/02/24 Allergies Allergy/AdvReac Type Severity Reaction Status Date / Time No Known Allergies Allergy Verified 10/01/24 21:44 [No Known Allergies*] Review of Systems Review of Systems: Yes all other systems are reviewed and are negative PMFSH Past Medical History Medical History (Updated 10/02/24 @ 02:00 by Thanh Trujillo MD) Type 2 diabetes Surgical History (Updated 04/10/23 @ 14:52 by SLADE Ball) Hx of cataract surgery History of esophagogastroduodenoscopy (EGD) Hx of colonoscopy Social History Social History Household Members: Spouse Alcohol intake: never Smoked in Last 30 Days: No Use of substances other than those prescribed or required for medical reasons: No Advance Directives: No Advance Directives Information Provided: Yes Current occupational status: retired Physical Exam ED Vital Signs: Vital Signs - 24 hr 10/01/24 21:42 10/01/24 23:10 10/02/24 02:00 Temperature 97.2 F 97.6 F 97.9 F Pulse Rate 101 H 72 Respiratory Rate 16 98 H 16 Blood Pressure 143/66 H 135/65 132/52 L Pulse Oximetry 95 97 96 Oxygen Delivery Method Room Air Room Air Room Air 10/02/24 02:22 Temperature 97.9 F Pulse Rate 72 Respiratory Rate 16 Blood Pressure 132/52 L Pulse Oximetry 96 Oxygen Delivery Method Room Air BMI result Body Mass Index 22.3 Const Other: The patient is awake and alert with a normal mental status. She has some obvious facial injuries. She does not seem ill otherwise HENUT Other: The patient has an area of soft tissue swelling to the right side of her forehead. She has injuries to the philtrum area just above the upper lip. The right philtral column has a full-thickness injury that is a complicated laceration. There seems to be some tissue defect rather than a simple laceration. There is a 2nd skin injury at the left philtral column that seems to be more of a simple abrasion which is not a full-thickness injury. The teeth are intact and stable. No difficulty with jaw excursion. Eyes Other: No injuries to the eyes or surrounding structures. General: appearance normal, both eyes and all related structures Neck Other: No posterior midline C-spine tenderness. Good range of motion of the neck without pain. C-spine is clinically clear. Resp Effort & Inspection: normal respiratory effort Skin Other: The patient has a very ragged laceration to the skin of the face above of the upper lip at the right philtral column with a full-thickness injury that I think is associated with some missing tissue rather than a simple straight forward laceration. There seems to be a gap of the skin edges. The wound is a full-thickness injury but does not penetrate to the muscular layer underneath. There is a parallel injury at the left philtral column which is much less significant. This simply looks like an abrasion. There is some bruising to the skin of the palm. The skin is intact. Neuro Other: The patient is awake and alert with a normal mental status. Cranial nerves are intact. She moves her neck easily. She moves her extremities normally. Extrem Other: The patient has some bruising to the base of the palm. The wrist itself does not seem particularly tender and there is no snuffbox tenderness. Medications Administered Discontinued Medications Generic Name Dose Route Start Last Admin Trade Name Freq PRN Reason Stop Dose Admin Acetaminophen 650 mg 10/01/24 23:09 10/01/24 23:12 Acetaminophen 325 Mg Tablet PO 10/01/24 23:10 650 mg ONCE ONE Administration Bacitracin 1 appl 10/02/24 01:56 10/02/24 02:01 Bacitracin Oint 0.9 Gm Packet TOPICAL 10/02/24 01:57 1 appl ONCE ONE Administration Protocol Cephalexin HCl 1,000 mg 10/02/24 01:53 10/02/24 01:58 Cephalexin 500 Mg Capsule PO 10/02/24 01:54 1,000 mg ONCE ONE Administration Lidocaine HCl 5 ml 10/02/24 01:04 10/02/24 01:59 Lidocaine Hcl 1 % Mpf 5 Ml Vial INFILTRATI 10/02/24 01:05 5 ml ONCE ONE Administration Procedures Laceration Laceration 1: Site: face (Right philtral column) Side (If applicable): right Size (cm): 1 Depth: simple, single layer Local Anesthetic: lidocaine 1% Amount of anesthesia used (mL): 2 Pre-repair: wound explored, irrigated extensively and deep structures intact Skin layer closed with: nylon Size (cm): 6-0 Number of sutures: 3 Technique: simple, interrupted Medical Decision Making Medical Decision Making MDM Narrative: The patient presents following a mechanical fall. Slipped on wet pavement and fell forward striking her face and mildly injuring the face of the right palm. A plain film of the right wrist is negative. Clinically I do not have any suspicion for a navicular fracture The patient is most significant injury is a skin injury just above the right upper lip at the right philtral column. This is a full-thickness injury with some tissue missing. It is a full-thickness laceration but I think some tissue has been avulsed creating a defect. I spoke to the patient and her daughter about the nature of this injury. Ultimately I felt that closing this wound with most appropriate management. The wound is just above the vermilion border. The patient consented to having the wound closed with sutures. Anesthesia was achieved with an infraorbital block using 3 mL of 1% plain lidocaine. This was effective. The skin around the wound was prepped with Betadine. The wound itself was copiously irrigated with normal saline. The wound was closed with 3 simple interrupted stitches with adequate wound edge approximation. Stitches to be removed in 5-7 days. The patient is up-to-date on tetanus. She was started on cephalexin as wound infection prophylaxis. Discharge Plan Discharge Clinical Impression: Facial laceration, Fall, Contusion of right hand Patient Disposition: Home, Self-Care Instructions: Laceration (ED) Additional Instructions: You have 3 sutures in the wound of the skin above your lip. The stitches may come out at your primary care doctor's appointment next [place]. Please apply bacitracin or Neosporin (an [id number] antibiotic ointment) 2 times a day for 2 days. After that you may simply keep the wound covered with a Band-Aid or you may leave the wound open. Please take the antibiotic cephalexin 4 times a day, approximately every 6 hours for the next couple of days. You may use acetaminophen (Tylenol) as needed for pain. Please return to the emergency room if develop any sign of infection to the wound or any other acute concerns. Prescriptions: New cephalexin 500 mg capsule 500 mg PO QID 3 Days Qty: 12 0RF No Action omeprazole 40 mg capsule,delayed release(DR/EC) 40 mg PO BID Qty: 60 6RF Linzess 145 mcg capsule 145 mcg PO QAM Qty: 30 6RF Glucagon Emergency Kit (human) 1 mg recon soln 1 mg subcut Q20M PRN (Reason: hypoglycemia) Qty: 1 0RF Rx Instructions: until target blood sugar attained calcium carbonate-vitamin D3 600 mg(1,500mg) -800 unit tablet 1 tab PO DAILY ramelteon 8 mg tablet 8 mg PO BEDTIME trazodone 100 mg tablet 100 mg PO QPM gabapentin 800 mg tablet PO cetirizine 10 mg tablet 10 mg PO DAILY metformin 1,000 mg tablet 1,000 mg PO BID simvastatin 20 mg tablet 20 mg PO BEDTIME insulin aspart U-100 100 unit/mL solution 5 unit subcut TID enalapril maleate 20 mg tablet 20 mg PO DAILY Trulicity 0.75 mg/0.5 mL pen injector subcut QWEEK (DME) blood-glucose meter [OneTouch Verio Flex meter] [facility] [place] Instructions .ROUTE DAILY Qty: 1 Rx Instructions: As directed (DME) OneTouch Verio test strips Strip See Rx Instructions .ROUTE BID Qty: 10 Rx Instructions: As directed bisacodyl [Dulcolax (bisacodyl)] 5 mg tablet,delayed release (DR/EC) 10 mg PO BEDTIME 30 Days Qty: 60 6RF insulin lispro [Humalog U-100 Insulin] 100 unit/mL solution 25 unit subcut BEDTIME simethicone 180 mg capsule 180 mg PO TID Qty: 90 6RF Interventions: ED Discharge Assessment Last Done: 10/02/24 02:22 Discharge Date/Time: 10/02/24 02:24 Print Language: Croatian
[2024-10-02] MEDS: cephALEXin 500 MG CAPSULE 1000 MG PO (01:58)
[2024-10-02] MEDS: Lidocaine HCl 1 % MPF 5 ML VIAL INFILTRATI (01:59)
[2024-10-02 02:00] VITALS: BP 132/52; PULSE 72; RESP 16; TEMP 36.6; O2SAT 96
[2024-10-02] MEDS: Bacitracin Oint 0.9 GM PACKET 1 APPL TOPICAL (02:01)
[2024-10-02 02:22] VITALS: BP 132/52; PULSE 72; RESP 16; TEMP 36.6; O2SAT 96
== END 2024-10-02 02:24 | disposition home or self-care (01) ==
PROVIDERS: Emergency Provider Emergency Medicine
DX: S01.81XA Laceration without foreign body of other part of head, initial encounter (principal); S60.221A Contusion of right hand, initial encounter; W01.10XA Fall on same level from slipping, tripping and stumbling with subsequent striking against unspecified object, initial encounter; Y93.01 Activity, walking, marching and hiking; Y92.007 Garden or yard of unspecified non-institutional (private) residence as the place of occurrence of the external cause; Y99.8 Other external cause status
CPT/HCPCS: 12011; 73110; 99284; J2003

== ENCOUNTER → 2024-10-01 21:55 | Outpatient (BNV) | payer OTHER, SELFPAY | PROVIDERS: Visit Provider Radiology Diagnostic Radiology | DX: M25.531 Pain in right wrist (principal); R22.31 Localized swelling, mass and lump, right upper limb; W19.XXXA Unspecified fall, initial encounter | CPT/HCPCS: 73110 ==

== ENCOUNTER 2025-01-06 14:54 | Outpatient (REF) | payer OTHER, SELFPAY ==
[2025-01-06 16:31] LABS: Alanine Aminotransferase 14 U/L (0-31); Albumin Level 4.4 g/dL (3.5-5.0); Alkaline Phosphatase 78 U/L (39-117); Anion Gap 11 (12-20); Aspartate Amino Transferase 19 U/L (5-31); Bilirubin Total 0.2 mg/dL (0.0-1.0); Blood Urea Nitrogen 15 mg/dL (9-16); Calcium 9.8 mg/dL (8.4-10.2); Carbon Dioxide 32 mmol/L (22-29); Chloride 103 mmol/L (96-108); Estimated Glomerular Filt Rate > 60; Glucose Random 82 mg/dL (60-115); Potassium 4.9 mmol/L (3.3-5.1); Sodium 141 mmol/L (135-145); Total Protein 7.4 g/dL (6.5-8.0)
[2025-01-06 16:48] LABS: Creatinine Urine 33.69 mg/dL; Microalbumin Urine < 5.0 mg/L
--- OUTSIDE RECORDS SUMMARY | 2025-01-06 17:59 | XMS_ITS | Encounter Summary ---
Author Organization [employer] Address [address] [place] [address] 7t [place] [address] Care Team Providers Care Goat Herder Name Role Phone Shay Velasquez MD Primary Care Provide r Reason for Visit * Reason Comments Med Refill Encounter Details Date Type Department Care Team ([facility] st Contact Info) Description 07/06/2024 Refill [facility] MEDICINE [address] [place] [address] Shay Velasquez MD [address] [place] [address] Type 2 diabetes mellitus without complication, with long-term current use of insulin ([facility]) Social History Tobacco Use Types Packs/Day Years Used Date Smoking Tobacco: Never Passive Smoke Exposure: Never Smokeless Tobacco: Never Alcohol Use Standard Drinks/Week Comments Never 0 (1 standard drink = 0.6 oz pur e alcohol) Depression Answer Date Recorded Patient Health Questionnaire-9 Score 0 03/13/2024 Patient Health Questionnaire-9 Score 0 03/13/2024 Last PHQ-9: Questionnaire Data Not on file 0 03/13/2024 Housing Stability Answer Date Recorded What is your housing situation today? I have marianne sing 03/13/[address] you li ve. Do you have problems with any of the following? None of the above 03/13/2024 Food Insecurity Answer Date Recorded Within the past 12 months, y ou worried that your food would run out before you got money to buy more: Never True 03/13/2024 Within the past 12 months,th e food you bought just didn't last and you didn't have enough money to get more: Never True Transportation Answer Date Recorded In the past 12 months, has l ack of transportation kept you from medical appts, meetings, work or from getting things needed for daily living? No 03/13/2024 Utilities Answer Date Recorded In the past 12 months, has t he electric, gas, oil or water company threatened to shut off services in your home? No 03/13/2024 Depression Answer Date Recorded Patient Health Questionnaire-2 Score 0 03/13/2024 Internet Access Answer Date Recorded Internet Access Q1 Yes 03/31/2024 Internet Access Q2 Not on file 03/31/2024 Comments No Sex and Gender Information Value Date Recorded Sex Assigned at Female 05/29/2022 10:32 AM EDT Legal Sex Female 10:32 AM EDT Gender Identity Female 05/29/2022 10:32 AM EDT Sexual Orientation Straight 05/29/2022 10 :32 AM EDT documented as of this encounter Plan of Treatment Upcoming Encounters Date Type Department Care Team (Late st Contact Info) Description 01/26/2025 1:00 PM EDT Office Visit [facility] MEDICINE [address] [place] [address] Liliam Kim, CNM [address] [place] [address] 05/28/2025 3:00 PM EDT Office Visit [facility] ADULT DENTAL [address] [place] [address] Ryan, Jaquelin [address] [place] [address] documented as of this encounter Visit Diagnoses Diagnosis Type 2 diabetes mellitus without complication, with long-term current use of insulin ([facility]) documented in this encounter Additional Health Concerns Assessment Noted Time PHQ-9 Depression Total Score: 0 03/13/20 24 10:14 AM EDT documented as of this encounter Care Teams Goat Herder Relationship Specialty Start Date End Date Shay Velasquez MD [address] [place] [id number] PCP - General Internal Medicine 01/08/18 documented as of this encounter
== END 2025-01-06 14:55 | disposition home or self-care (01) ==
LOC: HO.HHCL 14:54
PROVIDERS: Visit Provider Internal Medicine
DX: E11.9 Type 2 diabetes mellitus without complications (principal); Z79.4 Long term (current) use of insulin; E78.2 Mixed hyperlipidemia
CPT/HCPCS: 36415; 80053; 82570

== ENCOUNTER 2025-01-26 10:43 | Outpatient (REF) | payer MEDICARE, SELFPAY ==
--- NOTE | ~2025-01-26 | MM_ITS ---
EXAMINATION: MM SCREENING DIGITAL BREAST TOMOSYNTHESIS, BILATERAL CLINICAL INFORMATION: Screening. Asymptomatic. COMPARISON: Mammography: Comparison is made with available priors TECHNIQUE: Digital breast mammography with tomosynthesis is performed in both the craniocaudal and mediolateral oblique views along with computer-aided detection (CAD). FINDINGS: There are scattered areas of fibroglandular density (ACR BI-RADS breast composition Category b). There are no significant masses, abnormal calcifications, or other abnormalities. MM/MM tomosynthesis screening BI IMPRESSION: No mammographic evidence of malignancy. ASSESSMENT: BI-RADS BI-RADS 1 - Negative RECOMMENDATION: Routine annual mammography screening. 1 year F/U This examination should not preclude the clinical evaluation of a suspicious palpable abnormality. This patient's information was entered into a reminder system with a target due date for their next mammogram. Electronically signed by: Marlin Gooden DO 02/08/2025 02:00 PM MARCUS
--- OUTSIDE RECORDS SUMMARY | 2025-01-26 11:29 | XMS_ITS | Encounter Summary ---
Author Organization [employer] Address [address] [place] [address] 7t [place] [address] Care Team Providers Care Volunteer Services Coordinator Name Role Phone Shay Velasquez MD Primary Care Provide r Reason for Visit * Reason Comments Med Refill Encounter Details Date Type Department Care Team ([facility] st Contact Info) Description 07/06/2024 Refill [facility] MEDICINE [address] [place] [address] Shay Velasquez MD [address] [place] [address] Type 2 diabetes mellitus without complication, with long-term current use of insulin ([facility]) Social History Tobacco Use Types Packs/Day Years [...] Description 01/26/2025 1:00 PM EDT Office Visit [facility] MEDICINE [address] [place] [address] Liliam Kim, LEI [address] [place] [address] 04/07/2025 3:00 PM EDT Office Visit [facility] MEDICINE [address] [place] [address] Shay Velasquez MD [address] [place] [address] 05/28/2025 3:00 PM EDT Office Visit [facility] ADULT DENTAL [address] [place] [address] Jaquelin Davis [address] [place] [address] documented as of this encounter Visit Diagnoses Diagnosis Type 2 diabetes mellitus without complication, with long-term current use of insulin ([facility]) documented in this encounter Additional Health Concerns Assessment Noted Time PHQ-9 Depression Total Score: 0 03/13/20 24 10:14 AM EDT documented as of this encounter Care Teams Volunteer Services Coordinator Relationship Specialty Start Date End Date Shay Velasquez MD [address] [place] [address] PCP - General Internal Medicine 01/08/18 documented as of this encounter
[2025-01-26 16:06] LABS: MANUAL DIFF FLAG NO
[2025-01-26 16:08] LABS: Basophils Percent Auto 0.7 % (0-2); Eosinophils Absolute Auto 0.3 X10*3/uL (0.0-0.4); Eosinophils Percent Auto 5.3 % (0-4); Hematocrit 29.3 % (37.0-47.0); Hemoglobin 8.7 g/dl (12.0-16.0); Imm Gran Abs Auto 0.01 X10*3/uL (0.00-0.03); Imm Gran Pct Auto 0.2 % (0.0-0.4); Lymphocytes Absolute Auto 1.8 X10*3/uL (1.2-4.9); Lymphocytes Percent Auto 30.2 % (20-40); Mean Corpuscular HGB Conc 29.7 g/dl (31.0-35.0); Mean Corpuscular Volume 80.9 fL (80.0-98.0); Mean Platelet Volume 8.9 fL (9.4-12.3); Monocytes Absolute Auto 0.5 X10*3/uL (0.1-1.2); Monocytes Percent Auto 8.3 % (2-11); Neutrophils Absolute Auto 3.3 x10*3/uL (2.0-8.3); Neutrophils Percent Auto 55.3 % (45-73); Platelet Count 336 X10*3/uL (160-400); Red Blood Count 3.62 X10*6/uL (4.20-5.50); Red Cell Distribution Width 16.6 % (11.0-16.0)
[2025-01-26 16:13] LABS: INTERNATIONAL NORM RATIO 0.9 (0.9-1.1); Prothrombin Time 10.3 SEC (10.9-12.4)
[2025-01-26 16:27] LABS: Iron 24 mcg/dL (30-160); Percent Iron Saturation 7 % (15-50); Total Iron Binding Capacity 329 mcg/dL (228-428); Unsaturated Iron Binding 305 ug/dL
[2025-01-26 16:58] LABS: Folate 12.8 ng/mL (> or = 4.0); Vitamin B12 < 148 pg/mL (200-900)
== END 2025-01-26 10:44 | disposition home or self-care (01) ==
LOC: HO.MAMMO 10:43
PROVIDERS: PCP Internal Medicine; Visit Provider Internal Medicine
DX: Z12.31 Encounter for screening mammogram for malignant neoplasm of breast (principal); D50.9 Iron deficiency anemia, unspecified
CPT/HCPCS: 36415; 77063; 77067; 82607; 82746; 83540; 85025; 85610

== ENCOUNTER → 2025-01-26 10:45 | Outpatient (BNV) | payer MEDICARE, SELFPAY | PROVIDERS: PCP Internal Medicine; Visit Provider Internal Medicine | DX: Z12.31 Encounter for screening mammogram for malignant neoplasm of breast (principal) | CPT/HCPCS: 77063; 77067 ==

== ENCOUNTER 2025-01-26 13:23 | Outpatient (REF) | payer MEDICARE, SELFPAY ==
--- OUTSIDE RECORDS SUMMARY | 2025-01-26 13:51 | XMS_ITS | Encounter Summary ---
Author Organization [employer] Address [address] [place] [address] 7t [place] [address] Care Team Providers Care Manager Care Management Name Role Phone Shay Velasquez MD Primary Care Provide r Encounter Details Date Type Department Care Team (Latest Contact Info) Description 01/26/2025 Travel Social History Tobacco Use Types Packs/Day Years Used Date Smoking Tobacco: Never Passive Smoke Exposure: Never Smokeless Tobacco: Never Alcohol Use Standard Drinks/Week Comments Never 0 (1 standard drink = 0.6 oz pur e alcohol) Depression Answer Date Recorded Patient Health Questionnaire-9 Score 0 01/26/2025 Patient Health Questionnaire-9 Score 0 01/26/2025 Last PHQ-9: Questionnaire Data Not on file 0 01/26/2025 Housing Stability Answer Date Recorded What is your housing situation today? I have marianne beth 03/13/[address] you li [...] Date Recorded Patient Health Questionnaire-2 Score 0 01/26/2025 Internet Access Answer Date Recorded Internet Access Q1 Yes 03/31/2024 Internet Access Q2 Not on file 03/31/2024 Comments No Sex and Gender Information Value Date Recorded Sex Assigned at Female 05/29/2022 10:32 AM EDT Legal Sex Female 10:32 AM EDT Gender Identity Female 05/29/2022 10:32 AM EDT Sexual Orientation Straight 05/29/2022 10 :32 AM EDT documented as of this encounter Functional Status * Over the past 2 weeks, how often have you been bothered by any of the following problems? Question Answer Date of Assessment Author Patient Health Questionnaire -2 Score 0 01/26/2025 1:09 PM EDT Yuri Sesay [place] * Little interest or pleasure in doing things Answer Date of Assessment Author Not at all 01/26/2025 1:09 PM EDT Yuri Sesay [place] * Feeling down, depressed, or hopeless Answer Date of Assessment Author Not at all 01/26/2025 1:09 PM EDT Yuri Sesay [place] * Trouble falling or staying asleep, or sleeping too much Answer Date of Assessment Author Not at all 01/26/2025 1:09 PM EDT Yuri Sesay [place] * Feeling tired or having little energy Answer Date of Assessment Author Not at all 01/26/2025 1:09 PM EDT Yuri Sesay [place] * Poor appetite or overeating Answer Date of Assessment Author Not at all 01/26/2025 1:09 PM EDT Yuri Sesay MA * Feeling bad about yourself - or that you are a failure or have let yourself or your family down Answer Date of Assessment Author Not at all 01/26/2025 1:09 PM EDT Yuri Sesay MA * Trouble concentrating on things, such as reading the newspaper or watching television Answer Date of Assessment Author Not at all 01/26/2025 1:09 PM EDT Yuri Sesay MA * Moving or speaking so slowly that other people could have noticed? Or the opposite - being so fidgety or restless that you have been moving around a lot more than usual. Answer Date of Assessment Author Not at all 01/26/2025 1:09 PM EDT Yuri Sesay MA * Thoughts that you would be better off or hurting yourself in some way Answer Date of Assessment Author Not at all 01/26/2025 1:09 PM EDT Yuri Sesay MA * Patient Health Questionnaire-9 Score Answer Date of Assessment Author 0 01/26/2025 1:09 PM EDT Yuri Sesay [place] documented as of this encounter Plan of Treatment Upcoming Encounters Date Type Department Care Team (Late st Contact Info) Description 04/07/2025 3:00 PM EDT Office Visit [facility] MEDICINE [address] [place] [address] Sahy Velasquez MD [address] [place] [address] 05/28/2025 3:00 PM EDT Office Visit [facility] ADULT DENTAL [address] [place] [address] Ryan, Jaquelin [address] [place] [address] documented as of this encounter Visit Diagnoses Not on filedocumented in this encounter Additional Health Concerns Assessment Noted Time PHQ-9 Depression Total Score: 0 01/27/20 25 1:09 PM EDT documented as of this encounter Care Teams Manager Care Management Relationship Specialty Start Date End Date Shay Velasquez MD [address] [place] [address] PCP - General Internal Medicine 01/08/18 documented as of this encounter
== END 2025-01-26 13:24 | disposition home or self-care (01) ==
LOC: HO.HHCL 13:23
PROVIDERS: PCP Internal Medicine; Visit Provider Internal Medicine
DX: Z13.89 Encounter for screening for other disorder (principal)

== ENCOUNTER 2025-03-05 13:27 | Outpatient (AMB) | payer OTHER, SELFPAY ==
--- NOTE | 2025-03-05 13:28 | A.OFFVIS_ITS ---
Vital Signs 03/05/25 13:42 Height 5 ft 3 in Weight 137 lb BMI 24.3 BP 145/70 H Blood Pressure Location Lt brachial Position Sitting Pulse 81 Intake Visit Reasons: Gastroesophageal reflux disease (GERD) Intake Note: Patient in office today in follow up of GERD. CC: Patient states that she is doing well but has been buying her Omeprazole OTC. Uniform Force Captain Required: Yes Uniform Force Captain Language: Oncologist Name: IsaelscottyMarilee Accompanied by: Self / Same As Patient Allergies No Known Allergies (No Known Allergies*) Allergy (Verified 03/05/25 13:49) HPI HPI Gastroesophageal reflux disease (GERD): Details: Assessment & Plan (1) Chronic idiopathic constipation: Code(s): K59.04 - Chronic idiopathic constipation Plan: LITHUANIAN #Latrice Live She continues to do well. The regimen of Linzess 145 micro g along with omeprazole and simethicone is well controlling her symptoms and she remains satisfied with her GI regimen. Return office visit in 6 months. (2) GERD (gastroesophageal reflux disease): Code(s): K21.9 - Gastro-esophageal reflux disease without esophagitis (3) Abdominal bloating: Code(s): R14.0 - Abdominal distension (gaseous) Medications: Refilled simethicone 180 mg PO TID 90 caps 6RF R14.0 - Abdominal distension (gaseous) linaclotide (Linzess) 145 mcg PO QAM 30 caps 6RF omeprazole 40 mg PO BID 60 caps 6RF K21.9 - Gastro-esophageal reflux disease without esophagitis TODAY'S VISIT [place] #teo LIVE Pt has lost to follow up since 2022 She has been very stable on her omeprazole 40mg bid, LInzess 145mcg, bisacodyl and simethicone. ROV 1 year [facility] Medical History (Updated 02/06/25 @ 17:45 by Shanna Ulloa MD) Type 2 diabetes Surgical History (Updated 03/05/25 @ 14:02 by SLADE Ball) Hx of cataract surgery History of esophagogastroduodenoscopy (EGD) Hx of colonoscopy Social History (Updated 02/06/25 @ 15:27 by Ban Gonsalez) Household Members: Spouse Housing: Apartment Are you a primary hospice care consultant to a significant other at home: Yes Do you presently have visiting nurse or other home services: No Alcohol intake: never Patient Tobacco Use Status: Former Tobacco user service: No Current occupational status: retired Review of Systems Const Denies fatigue, Denies fever(s), Denies night sweats, Denies poor appetite and Denies weight loss Eyes Details: glasses Reports requires corrective lenses ENT Reports Normal hearing present, Denies dental pain, Denies dysphagia, Denies hearing loss, Denies mouth pain, Denies odynophagia, Denies throat swelling, Denies tongue swelling and Reports other (Dentition adequate) Card Reports no additional complaints Resp Reports no additional complaints GI Details: Denies abdominal pain, Denies melena, Reports bloating, Denies hematochezia, Reports constipation, Denies GI cramping, Denies dysphagia, Denies excessive flatus, Denies early satiety, Reports heartburn, Denies diarrhea, Denies nausea, Denies odynophagia, Denies vomiting and Denies hematemesis Skin/Breast Denies pruritus, Denies lesions, Denies rash and Denies jaundice Neuro Reports Normal hearing present and Denies Abnormal speech present Endo Denies fatigue Aller/Immun Denies throat swelling and Denies tongue swelling Physical Exam Vital Signs: Last Vital Signs Pulse 81 03/05/25 13:42 BP 145/70 H 03/05/25 13:42 BMI result Body Mass Index 24.3 Const General: cooperative, no acute distress, well developed and well groomed Nutritional Appearance: average body habitus and well nourished Orientation/consciousness: oriented to person, oriented to place and oriented to time Limitations: language barrier HEENT Head: Yes normocephalic and Yes atraumatic Eyes General: appearance normal, both eyes and all related structures Pupils: Equal, round and reactive pupils present Neck Neck: Yes normal visual inspection and Yes no lymphadenopathy Thyroid: Thyroid normal Resp Effort & Inspection: normal respiratory effort and able to speak in complete sentences Auscultation: clear to auscultation bilaterally Cardio Rate: regular rate Rhythm: regular rhythm Heart sounds: Normal, physiologic split S2 sound present Peripheral pulses: radial pulses present and posterior tibial pulses present GI Inspection: No distended and No Abdominal panniculus present Palpation (GI): Soft to palpation, nontender, no guarding, not rigid and No hepatosplenomegaly present Percussion: Yes normal to percussion Auscultation: normal bowel sounds Rectal Exam - Female: deferred Skin General skin exam: no rashes or lesions noted, turgor normal, skin not dry, no jaundice, No spider nevi and no striae Rashes: no rashes Nails: normal Neuro General: oriented to person, oriented to place and oriented to time Cranial nerves: Yes Equal, round and reactive pupils present and Yes Normal hearing present Speech: No Abnormal speech present Extrem General: Yes normal to inspection, No clubbing, No cyanosis and No edema Psych Appearance: grossly normal and well kempt Mental Status: mental status grossly normal Speech and movement: Normal speech and movement present Affect: normal affect Attitude: cooperative Thought process: Normal thought process present and not confabulating Thought content: Normal thought content present Insight: Fair insight present (Psych) Judgement: Fair judgement present (Psych) Assessment & Plan Assessment & Plan (1) Chronic idiopathic constipation: Code(s): K59.04 - Chronic idiopathic constipation Category: Medical (2) GERD (gastroesophageal reflux disease): Code(s): K21.9 - Gastro-esophageal reflux disease without esophagitis Category: Medical (3) Abdominal bloating: Code(s): R14.0 - Abdominal distension (gaseous) Category: Medical Plan [place] #v LIVE Pt has lost to follow up since 2022 She has been very stable on her omeprazole 40mg bid, LInzess 145mcg, bisacodyl and simethicone. ROV 1 year Medications: Refilled bisacodyl (Dulcolax (bisacodyl)) 10 mg (2 x 5 mg) PO BEDTIME 60 tabs 6RF 30 days K59.04 - Chronic idiopathic constipation omeprazole 40 mg PO BID 60 caps 6RF K21.9 - Gastro-esophageal reflux disease without esophagitis simethicone 180 mg PO TID 90 caps 6RF R14.0 - Abdominal distension (gaseous) linaclotide (Linzess) 145 mcg PO QAM 30 caps 6RF Coding Level of Care Code Est Pt Level 3 (04188) Diagnoses Chronic idiopathic constipation K59.04 GERD (gastroesophageal reflux disease) K21.9 Abdominal bloating R14.0
--- OUTSIDE RECORDS SUMMARY | 2025-03-05 13:31 | XMS_ITS | Encounter Summary ---
Author Organization [employer] Address [address] [place] [address] 7 [place] [address] Care Team Providers Care Glass Frame Fitter Name Role Phone Shay Velasquez MD Primary Care Provide r October Reason for Visit * Reason Comments Med Refill Encounter Details Date Type Department Care Team ([facility] st Contact Info) Description 07/06/2024 Refill [facility] MEDICINE [address] [place] [address] Shay Velasquez MD [address] [place] [address] Type 2 diabetes mellitus without complication, with long-term current use of insulin ([facility]) Social History Tobacco Use Types Packs/Day Years [...] is your housing situation today? I have mraianne kirit 03/13/[address] you li [...] Care Team (Late st Contact Info) Description 03/06/2025 1:00 PM EDT Clinical Support [facility] MEDICINE [address] [place] [address] 04/07/2025 3:00 PM EDT Office Visit [facility] MEDICINE [address] [place] [address] Shay Velasquez MD [address] [place] [address] 05/28/2025 3:00 PM EDT Office Visit [facility] ADULT DENTAL [address] [place] [address] Jaquelin Davis [address] [place] [address] documented as of this encounter Visit Diagnoses Diagnosis Type 2 diabetes mellitus without complication, with long-term current use of insulin ([facility]) documented in this encounter Additional Health Concerns Assessment Noted Time PHQ-9 Depression Total Score: 0 03/13/20 24 10:14 AM EDT documented as of this encounter Care Teams Glass Frame Fitter Relationship Specialty Start Date End Date Shay Velasquez MD [address] [place] [id number] PCP - General Internal Medicine 01/08/[address] [place] [address] 3rd [place] [address] Gastroenterology 03/03/25 documented as of this encounter
[2025-03-05 13:42] VITALS: BP 145/70; PULSE 81; BMI 24.3
== END 2025-03-05 14:06 | disposition home or self-care (01) ==
LOC: HO.HGI 13:27
PROVIDERS: Visit Provider Nurse Practitioner
DX: K59.04 Chronic idiopathic constipation (principal); K21.9 Gastro-esophageal reflux disease without esophagitis; R14.0 Abdominal distension (gaseous)
CPT/HCPCS: 99213

== ENCOUNTER 2025-06-24 09:32 | Outpatient (REF) | payer MEDICARE, SELFPAY ==
--- OUTSIDE RECORDS SUMMARY | 2025-06-24 10:47 | XMS_ITS | Encounter Summary ---
Author Organization [employer] Address [address] [facility] 7t [place] [address] Care Team Providers Care Supervisor Reinforced Steel Placing Name Role Phone Shay Velasquez MD Primary Care Provide r October Unavailable Reason for Visit * Reason Comments Med Refill Encounter Details Date Type Department Care Team ([facility] st Contact Info) Description 02/26/2025 Refill [facility] MEDICINE [address] [place] [address] Shay Velasquez MD [address] [place] [address] Type 2 diabetes mellitus without complication, with long-term current use of insulin ([facility]) Social History Tobacco Use Types Packs/Day [...] is your housing situation today? I have mariannedot beth 03/13/[address] you [...] Care Team (Late st Contact Info) Description 08/25/2025 2:30 PM EST Office Visit [facility] MEDICINE [address] [place] [address] Shay Velasquez MD [address] [place] [address] 11/27/2025 1:30 PM EDT Office Visit [facility] ADULT DENTAL [address] [place], [place] [phone] Ryan Jaquelin [address] [place] [address] documented as of this encounter Visit Diagnoses Diagnosis Type 2 diabetes mellitus without complication, with long-term current use of insulin ([facility]) documented in this encounter Additional Health Concerns Assessment Noted Time PHQ-9 Depression Total Score: 0 01/27/20 25 1:09 PM EDT documented as of this encounter Care Teams Supervisor Reinforced Steel Placing Relationship Specialty Start Date End Date Shay Velasquez MD [address] [place] [phone] PCP - General Internal Medicine 01/08/[address] [place] [address] 3rd [place] [address] Gastroenterology 03/03/25 documented as of this encounter
--- OUTSIDE RECORDS SUMMARY | 2025-06-24 10:47 | XMS_ITS | Encounter Summary ---
Author Organization [employer] Address [address] [facility] 7t [place] [address] Care Team Providers Care Carding Machine Operator Name Role Phone Shay Velasquez MD Primary Care Provide r October Unavailable Reason for Visit * Reason Comments Med Refill Encounter Details Date Type Department Care Team (Late st Contact Info) Description 12/18/2023 Refill [facility] [address] [place] [address] Jeannine Olson MD [address] [place] [address] Social History Tobacco Use Types Packs/Day Years Used Date Smoking Tobacco: Never Passive Smoke Exposure: Never Smokeless Tobacco: Never Alcohol Use Standard Drinks/Week Comments Never 0 (1 standard drink = 0.6 oz pur e alcohol) Housing Stability Answer Date Recorded What is your housing situation today? I have housing today, but I am worried about losing housing in the future 06/04/[address] you li ve. Do you have problems with any of the following? None of the above 06/04/2023 Food Insecurity Answer Date Recorded Within the past 12 months, y ou worried that your food would run out before you got money to buy more: Never True 06/04/2023 Within the past 12 months,th e food you bought just didn't last and you didn't have enough money to get more: Never True 12/2022 Transportation Answer Date Recorded In the past 12 months, has l ack of transportation kept you from medical appts, meetings, work or from getting things needed for daily living? No 06/04/2023 Utilities Answer Date Recorded In the past 12 months, has t he electric, gas, oil or water company threatened to shut off services in your home? No 06/04/2023 Depression Answer Date Recorded Patient Health Questionnaire-2 Score 0 08/01/2022 Comments No Sex and Gender Information Value [...] Description 08/25/2025 2:30 PM EST Office Visit [facility] MEDICINE [address] [place] [address] Shay Velasquez MD [address] [place] [address] 11/27/2025 1:30 PM EDT Office Visit [facility] ADULT DENTAL [address] [place] [address] Ryan, Jaquelin [address] [place] [address] documented as of this encounter Visit Diagnoses Not on filedocumented in this encounter Care Teams Carding Machine Operator Relationship Specialty Start Date End Date Shay Velasquez MD [address] [place] [phone] PCP - General Internal Medicine 01/08/[address] [place] [address] 3rd [place] [address] Gastroenterology 03/03/25 documented as of this encounter
--- OUTSIDE RECORDS SUMMARY | 2025-06-24 10:47 | XMS_ITS | Encounter Summary ---
Author Organization [employer] Address 75 [facility] 7t [place] [address] Care Team Providers Care Family And Consumer Science Professor Name Role Phone Shay Velasquez MD Primary Care Provide r October Unavailable Reason for Visit * Reason Comments Med Refill Encounter Details Date Type Department Care Team ([facility] st Contact Info) Description 07/06/2024 Refill [facility] MEDICINE [address] [place] [address] Shay Velasquez MD [address] [place] [address] Type 2 diabetes mellitus without complication, with long-term current use of insulin ([facility]) Social History Tobacco Use Types Packs/Day [...] Description 08/25/2025 2:30 PM EST Office Visit [facility] MEDICINE [address] [place] [address] Shay Velasquez MD [address] [place] [address] 11/27/2025 1:30 PM EDT Office Visit [facility] ADULT DENTAL [address] [place], [place] [phone] Ryan, Jaquelin [address] [place] [address] documented as of this encounter Visit Diagnoses Diagnosis Type 2 diabetes mellitus without complication, with long-term current use of insulin (HCC) documented in this encounter Additional Health Concerns Assessment Noted Time PHQ-9 Depression Total Score: 0 03/13/20 24 10:14 AM EDT documented as of this encounter Care Teams Family And Consumer Science Professor Relationship Specialty Start Date End Date Shay Velasquez MD [address] [place] [id number] PCP - General Internal Medicine 01/08/[address] [place] [address] 3rd [place] [address] Gastroenterology 03/03/25 documented as of this encounter
--- OUTSIDE RECORDS SUMMARY | 2025-06-24 10:48 | XMS_ITS | Encounter Summary ---
Author Organization [employer] [facility] Address 75 [facility] 7t [place] [address] Care Team Providers Care Game Warden Name Role Phone Shay Velasquez MD Primary Care Provide r October Unavailable Encounter Details Date Type Department Care Team (Latest Contact Info) Description 06/09/2020 Abstract [facility] CONVERSIONS Dental, Provider, DDS Social History Tobacco Use Types Packs/Day Years Used Date Smoking Tobacco: Never Assessed Comments Unknown Sex and Gender Information Value Date Recorded Sex Assigned at Female 05/29/2022 10:32 AM EDT Legal Sex Female 10:32 AM EDT Gender Identity Female 05/29/2022 10:32 AM EDT Sexual Orientation Straight 05/29/2022 10 :32 AM EDT documented as of this encounter Plan of Treatment Upcoming Encounters Date Type Department Care Team (Late st Contact Info) Description 08/25/2025 2:30 PM EST Office Visit [facility] MEDICINE [address] [place] [address] Shay Velasquez MD [address] [place] [address] 11/27/2025 1:30 PM EDT Office Visit [facility] ADULT DENTAL [address] [place] [address] Jauqelin Davis [address] [place] [address] documented as of this encounter Visit Diagnoses Not on filedocumented in this encounter Care Teams Game Warden Relationship Specialty Start Date End Date Shay Velasquez MD [address] [place] [address] PCP - General Internal Medicine 01/08/[address] [place] [address] Drive 3rd Floor [place] [address] Gastroenterology 03/03/25 documented as of this encounter
--- OUTSIDE RECORDS SUMMARY | 2025-06-24 10:48 | XMS_ITS | Encounter Summary ---
Author Organization [employer] Address 75 [facility] 7t [place] [address] Care Team Providers Care Waist Fitter Name Role Phone Shay Velasquez MD Primary Care Provide r October Unavailable Reason for Visit * Reason Onset Date Comments [facility] 05/20/2025 Encounter Details Date Type Department Care Team ([facility] st Contact Info) Description 05/20/2025 Telephone [facility] MEDICINE [address] [place] [address] Mi Carlson RN [facility] Social History Tobacco Use Types Packs/Day Years [...] AM EDT documented as of this encounter Miscellaneous Notes * Telephone Encounter - Mi Carlson RN - 06/22/2025 10:02 AM EST TC placed to pt with S digital measurement advisor #[id number] to ask pt to repeat CBC blood work to confirm that the pt Hgb has gone up. The pt was instructed that this can be performed on the first floor at the health center or at [facility]. Pt stated understanding and had no further questions at this time. * Telephone Encounter - Mi Carlson RN - 05/20/2025 9:22 AM EDT TC placed to [facility] in regard to request from PCP below. Per , the pt was seen on March 05 for anoffice visit and they will fax over the provider's office visit note to the [employer] Sales Consultant. The office also confirmed that the pt is doing well and has a follow up in six months time. There isno scheduled EGD nor is there any notation that one is scheduled in the future. Office visit note from 03/05 was received and will be scanned into pt chart under media. ----- Message from Shay [place] MD sent at 05/19/2025 2:18 PM EDT ----- Please contact [facility]. Pt was supposed to be seen back in 03/05/2025, Pt tells me she kept the appointment but we have no records. Pt has anemia (iron deficiency ) and needs an EGD, Please find out if it was done or if there are plans to be done thank you7 documented in this encounter Plan of Treatment Upcoming Encounters Date Type Department Care Team (Late st Contact Info) Description 08/25/2025 2:30 PM EST Office Visit [facility] MEDICINE [address] [place] [address] Shay Velasquez MD [address] [place] [address] 11/27/2025 1:30 PM EDT Office Visit [facility] ADULT DENTAL [address] [place] [address] Riky Davisaris [address] [place] [address] documented as of this encounter Goals Goal Patient Goal Type Associated Problems Recent Progress Patient-Stated? Author Help patients manage their type 2 diabetes Care Plan Help patients manage their type 2 diabetes No Lori Franco [place] Patient has chronic kidney disease Care Plan Patient has chronic kidney disease No Lori Franco [place] Help patients manage their type 2 diabetes Care Plan Help patients manage their type 2 diabetes No FrancoLori grant [place] Patient has diabetic neuropathy Care Plan Patient has diabetic neuropathy No FrancoWade grantomy [place] Patient has chronic kidney disease Care Plan Patient has chronic kidney disease No Lori Franco [place] Patient has diabetic neuropathy Care Plan Patient has diabetic neuropathy No FrancoBrenda grantuyomy [place] Patient has chronic kidney disease Care Plan Patient has chronic kidney disease No Shay Velasquez MD Patient has chronic kidney disease Care Plan Patient has chronic kidney disease No Shay Velasquez MD Patient has diabetic neuropathy Care Plan Patient has diabetic neuropathy No Shay Velasquez MD Patient has diabetic neuropathy Care Plan Patient has diabetic neuropathy No Shay Velasquez MD Patient has chronic kidney disease Care Plan Patient has chronic kidney disease No Mi Carlson RN Patient has chronic kidney disease Care Plan Patient has chronic kidney disease Mi Muniz RN Patient has diabetic neuropathy Care Plan Patient has diabetic neuropathy No Mi Carlson RN Patient has diabetic neuropathy Care Plan Patient has diabetic neuropathy No Mi Carlson RN documented as of this encounter Visit Diagnoses Not on filedocumented in this encounter Additional Health Concerns Active Problems Noted Date Diagnosed Date Help patients manage their type 2 diabetes 06/16 Patient has chronic kidney disease 06/16/2025 Help patients manage their type 2 diabetes 06/16 Patient has diabetic neuropathy 06/16/2025 Patient has chronic kidney disease 06/16/2025 Patient has diabetic neuropathy 06/16/2025 Patient has chronic kidney disease 06/22/2025 Patient has chronic kidney disease 06/22/2025 Patient has diabetic neuropathy 06/22/2025 Patient has diabetic neuropathy 06/22/2025 Patient has chronic kidney disease 06/22/2025 Patient has chronic kidney disease 06/22/2025 Patient has diabetic neuropathy 06/22/2025 Patient has diabetic neuropathy 06/22/2025 Assessment Noted Time PHQ-9 Depression Total Score: 0 01/27/20 25 1:09 PM EDT documented as of this encounter Care Teams Waist Fitter Relationship Specialty Start Date End Date Shay Velasquez MD [address] [place] [id number] PCP - General Internal Medicine 01/08/18October [address] [place] [address] 3rd [place] [address] Gastroenterology 03/03/25 documented as of this encounter
--- OUTSIDE RECORDS SUMMARY | 2025-06-24 10:48 | XMS_ITS | Encounter Summary ---
Author Organization [employer] Address [address] [facility] 7t [place] [address] Care Team Providers Care Consultant Nurse Name Role Phone Shay Velasquez MD Primary Care Provide r October Unavailable Encounter Details Date Type Department Care Team (Late st Contact Info) Description 11/29/2022 Abstract [facility] MEDICINE [address] [place] [address] Shay Velasquez MD [address] [place] [phone] Social History Tobacco Use Types Packs/Day Years Used Date Smoking Tobacco: Never Smokeless Tobacco: Never Depression Answer Date Recorded Patient Health Questionnaire-2 [...] Description 08/25/2025 2:30 PM EST Office Visit [facility] MEDICINE [address] [place], [place] [phone] Shay Velasquez MD [address] [place], [place] [phone] 11/27/2025 1:30 PM EDT Office Visit [facility] ADULT DENTAL [address] [place], [place] [phone] Jaquelin Davis [address] [place] [address] documented as of this encounter Procedures Procedure Name Priority Date/Time Associated Diagnosis Comments COLONOSCOPY Routine 04/29/2019 documented in this encounter Results * Colonoscopy (04/29/2019) Colonoscopy Normal Normal 04/29/2019 Narrative Riri Gomez - 04/29/2019 1:31 PM EDT Recommended 7 year follow up ((7 years span in n individual who has a tendency to have intermittent anemia is the safest time span) see scanned report us Historical Provider HEALTH MAINTENANCE Edited Result - Final documented in this encounter Visit Diagnoses Not on filedocumented in this encounter Care Teams Consultant Nurse Relationship Specialty Start Date End Date Shay Velasquez MD [address] [place] [address] PCP - General Internal Medicine 01/08/18October [address]rd [place] [address] Gastroenterology 03/03/25 documented as of this encounter
--- OUTSIDE RECORDS SUMMARY | 2025-06-24 10:48 | XMS_ITS | Encounter Summary ---
Author Organization [employer] Address 75 [facility] 7t [place] [address] Care Team Providers Care Cotton Roll Packer Name Role Phone Shay Velasquez MD Primary Care Provide r October Unavailable Encounter Details Date Type Department Care Team ([facility] st Contact Info) Description 06/22/2025 Orders Only [facility] MEDICINE [address] [place] [address] Shay Velasquez MD [address] [place] [address] Iron deficiency anemia, unspecified iron deficiency anemia type (Primary Dx) Social History Tobacco Use Types Packs/Day Years [...] Description 08/25/2025 2:30 PM EST Office Visit [facility] MEDICINE [address] [place] [address] Shay Velasquez MD [address] [place] [address] 11/27/2025 1:30 PM EDT Office Visit [facility] ADULT DENTAL [address] [place] [address] RyanJaquelin [address] [place] [address] Scheduled Orders Name Type Priority Associated Diagnoses Orde r Schedule CBC auto differential Lab Routine Iron deficiency anemia, unspecified iron deficiency anemia type Expected: 06/22/2025 (Approximate), Expires: 06/22/2026 documented as of this encounter Goals Goal [...] diabetes No Lori Franco [place] Patient has diabetic neuropathy Care Plan Patient has diabetic neuropathy Lori Novak [place] Patient has chronic kidney disease Care Plan Patient has chronic kidney disease No Lori Franco [place] Patient has diabetic neuropathy Care Plan Patient has diabetic neuropathy No Lori Franco [place] Patient has chronic [...] disease No Mi Carlson RN Patient has diabetic neuropathy Care Plan Patient has diabetic neuropathy No Mi Carlson RN Patient has diabetic neuropathy Care Plan Patient has diabetic neuropathy No Mi Carlson RN documented as of this encounter Visit Diagnoses Diagnosis Iron deficiency anemia, unspecified iron deficiency anemia type- Primary documented in this encounter Additional Health Concerns Active [...] documented as of this encounter Care Teams Cotton Roll Packer Relationship Specialty Start Date End Date Shay Velasquez MD [address] [place] [id number] PCP - General Internal Medicine 01/08/18October [address] [place] [address] Gastroenterology 03/03/25 documented as of this encounter
--- OUTSIDE RECORDS SUMMARY | 2025-06-24 10:48 | XMS_ITS | Clinical Summary ---
Author Organization [employer] Address [address] [place] [address] [address] [place] [address] Care Team Providers Care Service Cleaner Name Role Phone Shay Velasquez MD Primary Care Provide r October Allergies No known active allergies Medications Blood Glucose Monitoring Suppl (ERPLYuch Verio Flex System) w/Device kit TEST BLOOD SUGAR EVERY DAY Active cyanocobalamin (Vitamin B-12) 1000 MCG/ML injection Inject 0.1 mL into the shoulder, thigh, or buttocks. 019 Active fluticasone (Flonase) 50 MCG/ACT nasal spray Administer 2 sprays into affected nostril(s) at bed time. 021 Active omeprazole (PriLOSEC) [address] capsule Take 40 mg by mouth 2 times daily. Active Simethicone Ultra Strength 180 MG capsule Take 180 mg by mouth 3 times daily. Active cetirizine (ZyrTEC) 10 MG tabletIndications :Seasonal allergies TAKE 1 TABLET BY MOUTH EVERY MORNING 90 tablet 3 023 Active Insulin Lispro 100 UNIT/ML solutionIndicatio ns:Type 2 diabetes mellitus without complication, with long-term current use of insulin (HCC) Inject 5 Units as directed 3 times daily. 3 mL 3 023 Active Baqsimi Two Pack 3 MG/DOSE nasal powder USE 1 SPRAY (3MG) IN ONE NOSTRIL FOR A PATIENT WITH SEVERE HYPOGLYCEMIA WHO IS NOT RESPONSIVE AND UNABLE SELF-TREAT WITH GLUCOSE. AFTERWARDS TURN ON SIDE. MAY REPEAT IN 15MINUTES IF PATIENT DOES NOT RESPOND. 2 each 1 05/23/2 024 Active ramelteon (Rozerem) 8 MG tabletIndications :Primary insomnia TAKE 1 TABLET BY MOUTH EVERY DAY AT BEDTIME 30 tablet 024 Active traZODone (Desyrel) 100 MG tabletIndications :Primary insomnia TAKE 1 TABLET BY MOUTH EVERY EVENING AFTER A MEAL. 30 tablet Active acetaminophen (Tylenol) 500 MG tablet Take 1 tablet (500 mg) by mouth every 6 (six) hours if needed for mild pain for up to 20 doses. 20 tablet 024 Active UltiCare Insulin Syringe 31G X 5/16 0.3 ML misc USE DIRECTED TO INJECT INSULIN FOUR TIMES DAILY 100 each 11 024 Active glucose blood (OneTouch Verio) test stripIndications: Type 2 diabetes mellitus without complication, with long-term current use of insulin ([facility]) USE DIRECTED TO TEST BLOOD SUGAR FOUR TIMES DAILY 100 strip 11 024 Active Trulicity 0.75 MG/0.5ML solution auto-injectorIndi cations:Type 2 diabetes mellitus without complication, with long-term current use of insulin ([facility]) INJECT ONE PEN (=0.75MG) SUBCUTANEOUSLY ONCE A WEEK DIRECTED 2 mL 11 025 Active cyanocobalamin (Vitamin B-12) 1000 MCG/ML injection Inject 1ml IM monthly 1 mL 06/19/20 25 3:38 PM EST 025 Active simvastatin (Zocor) 20 MG tabletIndications :Mixed hyperlipidemia TAKE 1 TABLET BY MOUTH EVERY DAY AT BEDTIME 90 tablet 1 025 Active metFORMIN (Glucophage) 1000 MG tabletIndications :Type 2 diabetes mellitus without complication, with long-term current use of insulin ([facility]) TAKE 1 TABLET BY MOUTH TWICE DAILY IN THE MORNING AND IN THE EVENING WITH MEALS 180 tablet 1 025 Active insulin glargine (Lantus) 100 UNIT/ML injectionIndicati ons:Type 2 diabetes mellitus without complication, with long-term current use of insulin ([facility]) INJECT 40 UNITS SUBCUTANEOUSLY EVERY DAY 10 mL 3 025 Active ascorbic acid (Vitamin C) 500 MG chewable tablet CHEW 1 TABLET BY MOUTH TWICE DAILY Active Ferrous Sulfate (iron) 325 (65 Fe) MG tablet Take 1 tablet by mouth 2 times daily. 025 Active gabapentin (Neurontin) 800 MG tabletIndications :Type 2 diabetes mellitus without complication, with long-term current use of insulin (HCC) TAKE 1 TABLET BY MOUTH EVERY TWELVE HOURS 60 tablet 6 025 Active gabapentin (Neurontin) 800 MG tabletIndications :Type 2 diabetes mellitus without complication, with long-term current use of insulin (HCC) TAKE 1 TABLET BY MOUTH EVERY TWELVE HOURS 60 tablet 6 024 2024 Discontinued Hospital, Clinic, or Other Facility Administered Medication Ordered Dose Route Frequency Start Date End Date Status cyanocobalamin (Vitamin B-12) injection 1,000 mcgIndications:Cobalami n deficiency 1000 mcg IM Every 30 days 01/30/2025 01/25/2026 Active Active Problems Problem Noted Date Diagnosed Date Stage 3 grade B generalized periodontitis per AAP/EFP 2017 classification 05/28/2025 Rectocele 01/26/2025 Abrasion of face 10/07/2024 Assessment & Plan (10/07/2024 2:55 PM EDT): Pt tripped and fell 4 days ago seen [place] [facility] [place] a small abrasio to upper lip received 3 stitches Pt to travel to [place] today, I asked she had them removed in 3 days in [place] Dental calculus 04/03/2024 Gingival bleeding 04/03/2024 Generalized gingival recession 04/03/2024 Missing teeth, acquired 04/03/2024 Periodontal disease 02/14/2024 Dilated pancreatic duct 08/01/2022 Assessment & Plan (08/01/2022 8:36 AM EST): MRI abdomen 11/2021 Mild dilatation of the main pancreatic duct in the head of the pancreas similar to previous exam July 2021. No mass seen. Fatty liver. Pt following with GI Preventative health care 08/01/2022 Assessment & Plan (05/19/2025 3:59 PM EDT): Mammogram: 01/26/2025 Normal Pap Smear: Pap NIL/HPV Neg 08/2021, 08/2018. ASCUS, HPV neg 2016. Cotest due in 2026 Colonoscopy: 04/29/2019 showed rectal polyp (hyperplastic) DEXA 01/08/2024 Osteopenia Assessment & Plan (01/06/2025 2:49 PM EDT): Mammogram: 01/08/2024 Normal Pap Smear: Pap NIL/HPV Neg 08/2021, 08/2018. ASCUS, HPV neg 2016. Cotest due in 2026 Colonoscopy: 04/29/2019 showed rectal polyp (hyperplastic) DEXA 01/08/2024 Osteopenia Assessment & Plan (03/13/2024 9:17 AM EDT): Mammogram: 01/08/2024 Normal Pap Smear: Pap NIL/HPV Neg 08/2021, 08/2018. ASCUS, HPV neg 2016. Cotest due in 2026 Colonoscopy: 04/29/2019 showed rectal polyp (hyperplastic) Assessment & Plan (02/27/2023 2:15 PM EDT): Mammogram: 11/15/2022 Normal Pap Smear: Pap NIL/HPV neg 08/2021, 08/2018. ASCUS, HPV neg 2016. 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 ) Pt referred back to GI, Previously we spoke with Kade at [facility] who reported that pt had upcoming follow up with GI 03/05/25 @ 1:30pm with Elsy Acuna. EGD was not scheduled yet. Assessment & Plan (01/06/2025 2:40 PM EDT): Pt with hx of anemia , normocytic and normochromic Previous iron studies showed a low ferritin normal LDH, low B12 and normal Folate, SPEP and UPEP normal and Stool for Occult blood was negative back then Pt on B12 supplementation, Colonoscopy 2018 showed a hyperplastic polyp She was under the care of Dr Mccullough flight control specialist last seen 06/26/2018 Assessment & Plan (08/01/2022 8:35 AM EST): Pt with anemia , normocytic and normochromic Iron studies show a low ferritin normal LDH, low B12 and normal Folate, SPEP and UPEP normal and Stool for Occult blood was negative. Pt on B12 supplementation, records of colonoscopy from [place] requested Still she has been unable to produce those records. She is under the care of Dr Mccullough flight control specialist last seen 06/26/2018 Diabetic polyneuropathy 06/15/2017 Assessment & Plan (07/10/2024 1:56 PM EST): Patient with previous c/o burning feet , likely due to Neuropathy She is on Gabapentin 800 mg po BID Assessment & Plan (03/13/2024 9:25 AM EDT): Patient with previous c/o burning feet , likely due to Neuropathy Previously started on Gabapentin 300 mg po TID Assessment & Plan (02/27/2023 2:11 PM EDT): Patient with c/o burning feet , likely due to Neuropathy Previously started on Gabapentin 300 mg po TID Gastroesophageal reflux disease without esophagi tis 06/15/2017 Assessment & Plan (05/19/2025 2:16 PM EDT): Seen in the past by GI last note from 01/02/2023. Referred back previous visit due to Iron deficiency anemia and b12 deficiency Malabsorption? Pt tells me she was seen again this year but does not recall when. Will request records Assessment & Plan (08/01/2022 8:35 AM EST): Persistent Pt gives a Hx of this, treated in [place] On Ranitidine 300 mg qhs Pt being followed by GI Mixed hyperlipidemia 06/15/2017 Assessment & Plan (10/07/2024 2:24 PM EDT): Pt is here for a f/u Lipid profile Lab Results Component Value Date TRIG 146 08/04/2024 TRIG 185 (H) 08/09/2022 CHOL 172 08/04/2024 LDLCHOLCAL 96 08/04/2024 HDL 47 08/04/2024 On a regimen of: Simvastatin 20 mg po qhs . For now will continue with current regimen, advised to try to adhere to a low cholesterol diet, counseled and educated about diet and exercise, Patient encouraged to come up with a personal goal for weight loss. Assessment & Plan (07/10/2024 1:50 PM EST): Pt is here for a f/u Lipid profile Lab Results Component Value Date TRIG 185 (H) 08/09/2022 On a regimen of: Simvastatin 20 mg po qhs . For now will continue with current regimen,repeat lipid profile advised to try to adhere to a low cholesterol diet, counseled and educated about diet and exercise, Patient encouraged to come up with a personal goal for weight loss. Assessment & Plan (08/01/2022 8:33 AM EST): Pt is here for a f/u Lipid profile 11/16/2020 showed: TC: 162 Trigs: 166 HDL: 43 LDL: 93 On a regimen of: Simvastatin 20 mg po qhs . For now will continue with current regimen,repeat lipid profile advised to try to adhere to a low cholesterol diet, counseled and educated about diet and exercise, Patient encouraged to come up with a personal goal for weight loss. Type 2 diabetes mellitus wit h diabetic polyneuropathy, with long-term current use of insulin 06/15/2017 Assessment & Plan (05/19/2025 2:18 PM EDT): Patient here for a f/u DM today controlled She is on a regimen of: Metformin 1000 mg po BID, Lantus 35 units sc q pm, Humalog 5 units sc q ac. and Trulicity 0.75 once a week Hgb A1c 05/19/2025: 6.3 from 6.8 Eye exam 03/13/2024 at [facility] Microalbumin 08/04/2024 was 32 Pt on an JUAN inhibitor (enalapril) Foot check risk of zero Pt reports compliance with Asa 81 mg po daily Plan: Continue current regimen Pt advised to: adhere to diabetic diet check your blood sugars regularly check your feet on a daily basis F/u 4 month Assessment & Plan (01/06/2025 3:01 PM EDT): Patient here for a f/u DM today controlled She is on a regimen of: Metformin 1000 mg po BID, Lantus 35 units sc q pm, Humalog 5 units sc q ac. and Trulicity 0.75 once a week Hgb A1c 01/06/2025: 6.8 Eye exam 03/13/2024 at [facility] Microalbumin 08/04/2024 was 32 Pt on an JUAN inhibitor (enalapril) Foot check risk of zero Pt reports compliance with Asa 81 mg po daily Plan: Continue current regimen Pt advised to: adhere to diabetic diet check your blood sugars regularly check your feet on a daily basis F/u 4 month Assessment & Plan (10/07/2024 2:55 PM EDT): Here for a f/u DM today controlled She is on a regimen of: Metformin 1000 mg po BID, Lantus 35 units sc q pm, Humalog 5 units sc q ac. and Trulicity 0.75 once a week Hgb A1c 10/07/2024: 6.1 Eye exam 03/13/2024 at [facility] Microalbumin 11/16/2020 was 3.5 Will repeat Pt on an JUAN inhibitor (enalapril) Foot check risk of zero Pt reports compliance with Asa 81 mg po daily Plan: Continue current regimen Pt advised to: adhere to diabetic diet check your blood sugars regularly check your feet on a daily basis F/u 4 month Assessment & Plan (07/10/2024 1:49 PM EST): Here for a f/u DM today controlled She is on a regimen of: Metformin 1000 mg po BID, Lantus 35 units sc q pm, Humalog 5 units sc q ac. and Trulicity 0.75 once a week Hgb A1c 07/10/2024 is: 6.4 Eye exam 03/13/2024 at [facility] Microalbumin 11/16/2020 was 3.5 Will repeat Pt on an JUAN inhibitor (enalapril) Foot check risk of zero Pt reports compliance with Asa 81 mg po daily Plan: Continue current regimen Pt advised to: adhere to diabetic diet check your blood sugars regularly check your feet on a daily basis F/u 4 month Assessment & Plan (03/13/2024 10:34 AM EDT): Here for a f/u DM today controlled She is on a regimen of: Metformin 1000 mg po BID, Lantus 35 units sc q pm, Humalog 5 units sc q ac. and Trulicity 0.75 once a week Hgb A1c 03/13/2024 is: 6.5 from 6.9 Glucometer per pts report : average 103 Eye exam 03/13/2024 at [facility] Microalbumin 11/16/2020 was 3.5 Will repeat Pt on an JUAN inhibitor (enalapril) Foot check risk of zero Pt reports compliance with Asa 81 mg po daily Plan: Continue current regimen Pt advised to: adhere to diabetic diet check your blood sugars regularly check your feet on a daily basis F/u 4 month Assessment & Plan (02/27/2023 2:22 PM EDT): Here for a f/u DM today She is on a regimen of: Metformin 1000 mg po BID, Lantus 35 units sc q pm, Humalog 5 units sc q ac. And Trulicity 0.75 once a week Hgb A1c 02/27/2023 is: 6.9 from 8.2 Glucometer per pts report : average 111 Eye exam not done recently. Pt referred to our [facility] Microalbumin 11/16/2020 was 3.5 Pt on an JUAN inhibitor (enalapril) Foot check risk of zero Pt reports compliance with Asa 81 mg po daily Plan: Continue current regimen Pt advised to: adhere to diabetic diet check your blood sugars regularly check your feet on a daily basis F/u 4 months In terms of her DM Pt has been advised to only inject 1/2 of her regular dose of Lantus the night before the procedure and to NOT take her Metformin the morning of the procedure until after the procedure has been completed Assessment & Plan (08/15/2022 1:42 PM EST): Here for a f/u DM slowly improving She is on a regimen of: Metformin 1000 mg po BID, Lantus 35 units sc q pm, Humalog 5 units sc q ac. And Trulicity 0.75 once a week Hgb A1c 08/15/2021 was 8.2 Glucometer per pts report : average 102 Eye exam not done recently. Pt referred to our [facility] Microalbumin 11/16/2020 was 3.5 Pt on an JUAN inhibitor (enalapril) Foot check risk of zero Pt reports compliance with Asa 81 mg po daily Plan: Continue current regimen Pt advised to: adhere to diabetic diet check your blood sugars regularly check your feet on a daily basis F/u 2 months Diabetic polyneuropathy associated with type 2 diabetes mellitus (E11.42). Pt with c/o burning feet , likely due to Neuropathy Previously started on Gabapentin 300 mg po TID Assessment & Plan (08/01/2022 11:53 AM EST): Here for a f/u DM remains uncontrolled She is suppossed to be on a regimen of: Metformin 1000 mg po BID and Lantus 35 units sc q pm and Humalog 5 units sc q ac. Hgb A1c 08/01/2021 was 8.4 Glucometer per pts report : average 167 Eye exam not done recently. Pt referred to our [facility] Microalbumin 11/16/2020 was 3.5 Pt on an JUAN inhibitor (enalapril) Foot check risk of zero Pt reports compliance with Asa 81 mg po daily Plan: Start Trulicity 0.75 once a week Pt advised to: adhere to diabetic diet check your blood sugars regularly check your feet on a daily basis F/u 4 weeks Diabetic polyneuropathy associated with type 2 diabetes mellitus (E11.42). Pt with c/o burning feet , likely due to Neuropathy Previously started on Gabapentin 300 mg po TID Resolved Problems Problem Noted Date Diagnosed Date Resolved Date Bilateral impacted cerumen 08/24/2023 1 09/10/2023 Assessment & Plan (08/24/2023 9:22 AM EST): Pt to use Debrox optic solution 5 x /day at least 5 days prior to ear wash Schedule ear flushing with RN in 1-2 wks Pt agreed to have PCV 20 and influenza IZ Acute cough 08/15/2022 02/27/2023 Assessment & Plan (08/15/2022 1:43 PM EST): Pt with c/o dry cough x 3 days, no fever, no sob no other associated symptoms. Negative Covid, negative flu Supportive measures Guaifenessin PRN F/u if worsening or if it becomes productive Encounters Date Type Department Care Team Description 06/22/2025 Orders Only [facility] [address] [place] [address] Shay Velasquez MD Iron deficiency anemia, unspecified iron deficiency anemia type (Primary Dx) 06/16/2025 Telephone [facility] [address] [place] [address] Shay Velasquez MD July recall 06/08/2025 Refill [facility] [address] [place], [place] [phone] Shay Velasquez MD Type 2 diabetes mellitus without complication, with long-term current use of insulin (HCC) 05/28/2025 3:00 PM EDT Office Visit [facility] ADULT D[facility] [address] [place], [place] [phone] Jaquelin Davis Missing teeth, acquired (Primary Dx); Periodontal disease; Dental calculus; Generalized gingival recession; Gingival bleeding; Stage 3 grade B generalized periodontitis per AAP/EFP 2017 classification 05/20/[address] [address] Mi Carlson RN [facility] 05/19/2025 2:00 PM EDT Office Visit [address] [address] Shay Velasquez MD Preventative health care (Primary Dx); Type 2 diabetes mellitus with diabetic polyneuropathy, with long-term current use of insulin (HCC); Cobalamin deficiency; Gastroesophageal reflux disease without esophagitis; Iron deficiency anemia, unspecified iron deficiency anemia type; Encounter for immunization 05/19/2025 Travel 05/18/2025 Telephone [facility] [address] [place] [address] Shay Velasquez MD chartprep 05/18/[address] [address] Shay Velasquez MD Type 2 diabetes mellitus without complication, with long-term current use of insulin (HCC) 04/06/[address] [address] Shay Velasquez MD chart prep from Last 3 Months Immunizations Immunization Administration Dates Next Due Influenza High-dose Quadriva lent Preservative Free 05/16/2022,06/21/2020 Influenza injectable quadriv alent IIV4 with preservative 05/09/2019,06/15/2017 Influenza injectable quadriv alent preservative free 08/24/2023,06/15/2021 Influenza, High Dose Seasona l, Preservative Free 05/19/2025,07/10/2024,06/13/2018 Moderna Covid-19 Vaccine 12+ 12/13/2021, 06/15/2021,11/16/2020,2020 Pneumococcal Conjugate PCV 13 09/18/2017 Pneumococcal Conjugate PCV 20 08/24/2023 Tdap 09/18/2017 Zoster, Recombinant 04/08/2024 Zoster, live 01/22/2018 Family History Medical History Relation Name Comments Breast cancer Neg Hx Colon cancer Neg Hx Ovarian cancer Neg Hx Social History Tobacco Use Types Packs/Day Years Used Date Smoking Tobacco: Never Passive Smoke Exposure: Never Smokeless Tobacco: Never Tobacco Cessation:Counseling Given: Not Answered Alcohol Use Standard Drinks/Week Comments Never 0 [...] Orientation Straight 05/29/2022 10 :32 AM EDT Last Filed Vital Signs Vital Sign Reading Time Taken Comments Blood Pressure 142/84 05/28/2025 3:00 PM EDT Pulse 100 05/19/2025 2:08 PM EDT Temperature 36.4 C (97.6 F) 05/19/2025 2:08 PM EDT Respiratory Rate 14 05/19/2025 2:08 PM EDT Oxygen Saturation 94% 05/19/2025 2:08 PM EDT Inhaled Oxygen Concentration - - Weight 62.8 kg (138 lb 6 oz) 05/19/2025 2:08 PM EDT Height 161.5 cm (5' 3.58 ) 05/19/2025 2:08 PM ED T Body Mass Index 24.06 05/19/2025 2:08 PM EDT Plan of Treatment Upcoming Encounters Date Type Department Care Team (Late st Contact Info) Description 08/25/2025 2:30 PM EST Office Visit [facility] [address] [place] [address] Shay Velasquez MD [address] [place] [address] 11/27/2025 1:30 PM EDT Office Visit [facility] [address] [place] [address] Ryan, Jaquelin [address] [place] [address] Health Maintenance Due Date Last Done Comments CT Colonography 1949 FIT DNA/Cologuard 1949 FIT 1949 FOBT 1950 Sigmoidoscopy 1950 Zoster Vaccines (3 of 3) 06/03/2024 04/08/2024, 12/29 Dental Oral Exam 09/18/2024 03/17/2024 RSV Patients and Patients Aged 60 years or older (1 - 1-dose 75+ series) 2024 Diabetes: Foot Exam 03/13/2025 03/13/2024, 03/13/2024, 03/13/2024, Additional history exists COVID-19 Vaccine ( season) 2025 12/13/2021, 06/15/2021, 11/16/2020, Additional history exists Alcohol/Substance Use Screening 07/10/2025 07/10/2024 Lipid Panel 08/04/2025 08/04/2024, 07/30, 11/16/2020 Diabetes: Hemoglobin A1C 08/19/2025 025, 01/06/2025, 10/07/2024, Additional history exists Dental Prophylaxis 11/27/2025 05/28/2025, 0 04/03/2024, 06/09/2020 Diabetes: Urine Protein Screening 01/06/2026 01/06/2025, 08/04/2024, 11/16/2020 Depression Screening 01/26/2026 01/26/2025, 01/27/20 25 SDOH Screening 01/26/2026 01/26/2025 Eye Exam 03/12/2026 03/12/2024 Colonoscopy 04/29/2026 04/29/2019 Colorectal Cancer Screening 04/29/2026 Tobacco Screening 05/28/2026 05/28/2025 Dental X-Ray: Bitewings 05/29/2026 05/28/2025, 03/17 HPV/Cotest 08/31/2026 08/31/2021, 08/31, 07/18/2017 Pap Smear 08/31/2026 08/31/2021, 08/31/2021 Dental X-Ray: Full Mouth 03/18/2027 03/17/2024 DTaP/Tdap/Td Vaccines (2 - Td or Tdap) 09/18/2027 09/18/2017 Pneumococcal Vaccine: 50+ Years Completed 08/24/2023, 09/18/2017 Hepatitis C Screening Completed 08/04/2024 Influenza Vaccine Completed 05/19/2025, , 08/24/2023, Additional history exists HIB Vaccines Aged Out No longer eligi ble based on patient's age to complete this topic HPV Vaccines Aged Out No longer eligi ble based on patient's age to complete this topic Hepatitis A Vaccines Aged Out No long er eligible based on patient's age to complete this topic Hepatitis B Vaccines Aged Out No long er eligible based on patient's age to complete this topic IPV Vaccines Aged Out No longer eligi ble based on patient's age to complete this topic Meningococcal B Vaccine Aged Out No l onger eligible based on patient's age to complete this topic Meningococcal Vaccine Aged Out No luis miguel nayeli eligible based on patient's age to complete this topic RSV under 20 months Aged Out No longe r eligible based on patient's age to complete this topic Rotavirus Vaccines Aged Out No longer eligible based on patient's age to complete this topic Goals Goal Patient Goal Type Associated Problems [...] Care Plan Patient has diabetic neuropathy No FrancoLori grant [place] Patient has chronic kidney disease Care [...] has diabetic neuropathy No Mi Carlson RN Procedures Procedure Name Priority Date/Time Associated Diagnosis Comments INTRAORAL - PERIAPICAL FIRST RADIOGRAPHIC IMAGE Routine 05/28/2025 3:00 PM EDT Missing teeth, acquired Periodontal disease Dental calculus Generalized gingival recession Gingival bleeding BITEWINGS - 2 RADIOGRAPHIC IMAGES Routine 05/28/2025 3:00 PM EDT Missing teeth, acquired Periodontal disease Dental calculus Generalized gingival recession Gingival bleeding ORAL HYGIENE INSTRUCTIONS Routine 05/28/2025 3:00 PM EDT Missing teeth, acquired Periodontal disease Dental calculus Generalized gingival recession Gingival bleeding PROPHYLAXIS - ADULT Routine 05/28/2025 3 :00 PM EDT Missing teeth, acquired Periodontal disease Dental calculus Generalized gingival recession Gingival bleeding INTRAORAL - PERIAPICAL EACH ADDITIONAL RADIOGRAPHIC IMAGE Routine 05/28/2025 3:00 PM EDT INTRAORAL - PERIAPICAL EACH ADDITIONAL RADIOGRAPHIC IMAGE Routine 05/28/2025 3:00 PM EDT POCT GLYCATED HEMOGLOBIN, TOTAL Routine 05/19/2025 2:10 PM EDT Type 2 diabetes mellitus with diabetic polyneuropathy, with long-term current use of insulin (HCC) POCT GLUCOSE Routine 05/19/2025 2:10 PM EDT Type 2 diabetes mellitus with diabetic polyneuropathy, with long-term current use of insulin ([facility]) ALBUMIN, RANDOM URINE W/CREATININE Routine 01/06/2025 2:59 PM EDT Type 2 diabetes mellitus without complication, with long-term current use of insulin (CMS/HCC) HEPATITIS C AB W/REFL TO HCV RNA, QN, PCR Routine 08/04/2024 10:01 AM EST Preventative health care LIPID PANEL, STANDARD Routine 08/04/2024 10:01 AM EST Mixed hyperlipidemia INTRAORAL - COMPLETE SERIES OF RADIOGRAPHIC IMAGES Routine 03/17/2024 2:00 PM EDT Encounter for dental examination Periodontal disease Dental caries Dental calculus COMPREHENSIVE ORAL EVALUATION - NEW OR ESTABLISHED PATIENT Routine 03/17/2024 2:00 PM EDT Encounter for dental examination Periodontal disease Dental caries Dental calculus THINPREP IMAGING PAP AND HPV MRNA E6/E7 WITH REFLEX TO HPV 16,18/45 Routine 08/31/2021 10:41 AM EST PAP SMEAR Routine 08/31/2021 12:00 AM EST HM COLONOSCOPY Routine 04/29/2019 from Last 3 Months or Most Recently Relevant to Health Maintenance Results * (ABNORMAL) POCT Hgb A1c (05/19/2025 2:10 PM EDT) Hemoglobin A1C 6.3(A) 4.0 - 5.7 % QC Media Lot # [id number] Lot# Expiration Date 6362,[id number] Blood 05/19/2025 2:10 PM EDT Shay Robertson MD POINT OF CARE TEST EN TER/EDIT ORDERABLES Final Result * POCT Glucose (05/19/2025 2:10 PM EDT) Glucose Blood, POC 126 60 - 200 mg/dL QC Media Lot # [id number] Lot# Expiration Date ,[id number] Blood Capillary blood specimen / Unknown 05/19/2025 2:10 PM EDT Shay Robertson MD POINT OF CARE TEST EN TER/EDIT ORDERABLES Final Result * Albumin, Random Urine W/Creatinine (01/06/2025 2:59 PM EDT) Creatinine, Urine 33.69 mg/dL [facility] Microalbumin Urine <5.0 mg/L [facility] Microalbum Creatinine Ratio Ur TNP <30 ug/mg cr [facility] Comment:Unable to calculate albumin/creatinine ratio due to lowmicroalbumin or creatinine result. Urine (Urine, Random) 01/06/2025 2:59 PM EDT 01/06/2025 4:06 PM EDT Shay Robertson MD LAB URINE ORDERABLES Final Result [facility] [address] [place] [phone] * Hepatitis C Antibody with Reflex to HCV, RNA, Quantitative, Real-Time PCR (08/04/2024 10:01 AM EST) Hepatitis C Antibody Nonreactive Nonreactive [facility] Comment:Antibodies to HCV no t detected; does not exclude early acuteHCV infection. Blood Venous blood specimen / Unknown 08/04/2024 10:01 AM EST 08/04/2024 11:34 AM EST Shay Robertson MD LAB BLOOD ORDERABLES Final Result Performing Organization Address [facility] Co de Phone Number [facility] [address] [place] [phone] * Lipid Panel, Standard (08/04/2024 10:01 AM EST) Triglycerides 146 <150 mg/dL [facility] Comment:Desirable Triglyceri de: less than 150 mg/dLBorderline High Triglyceride 150-199 mg/dLHigh Triglyceride: 200-499 mg/dLVery High Triglyceride: greater than or equal to 5OO mg/dL Cholesterol 172 <200 mg/dL [facility] Comment:Desirable Cholestero l: less than 200 mg/dLBorderline High Cholesterol: 200-239 mg/dLHigh Cholesterol: greater than 239 mg/dL LDL Cholesterol Calculated 96 <100 mg/dL [facility] Comment:Desirable LDL: less than 100 mg/dLNear Optimal/Above Optimal LDL: 110- 129 mg/dLBorderline High LDL: 130-159 mg/dLHigh LDL: 160-189 mg/dLVery High LDL: greater than or equal to 190 mg/dL HDL Cholesterol 47 >40 mg/dL [facility] Comment:Desirable HDL: great er than 40 mg/dL Note: This HDL assay may give artificially low results in patients with liver disease. Blood Venous blood specimen / Unknown 08/04/2024 10:01 AM EST 08/04/2024 11:34 AM EST Shay Robertson MD LAB BLOOD ORDERABLES Final Result Performing Organization Address City/[facility]/ZIP Co de Phone Number [facility] [address] [place] [phone] * THINPREP TIS PAP AND HPV mRNA E6/E7 WITH REFLEX TO HPV 16,18/45 (08/31/2021 10:41 AM EST) Clinical Information: None given [facility] COMMENT SEE COMMENT [facility] Comment: EXPLANATORY NOTE: The Pap is a screening test for cervical cancer. It is not a diagnostic test and is subject to false negative and false positive results. It is most reliable when a satisfactory sample, regularly obtained, is submitted with relevant clinical findings and history, and when the Pap result is evaluated along with historic and current clinical information. COMMENT: SEE COMMENT [facility] Comment: This case could not be evaluated with computer assisted technology. The slide was manually screened according to routine procedures. Associate Merchandiser: SEE COMMENT [facility] Comment: ED, CT(ASCP) CT screening location: [place] [address] HPV nRNA E6/E7 Not Detected Not Detected [facility] Comment: Methodology: Computer Networking Instructor-Mediated Amplification This assay detects E6/E7 viral messenger RNA (mRNA) from 14 high-risk HPV types (16,18,31,33,35,39,45,51,52,56,58,59,66,68). The analytical performance characteristics of this assay have been determined by [employer]. The modifications have not been cleared or approved by the FDA. This assay has been validated pursuant to the CLIA regulations and is used for clinical purposes. For additional information, please refer to http://education.[employer]/faq/RAF404a8 (This link if provided for information/ educational purposes only.) Interpretation/Res ult: SEE COMMENT [facility] Comment: Negative for intraepithelial lesion or malignancy. Atrophic pattern; predominantly parabasal cells LMP: NONE [facility] Prev. BX: NONE [facility] Prev. PAP: 2019 NIL/NEG [facility] SOURCE: None given [facility] Statement Of Adequacy: SATISFACTORY FOR EVALUATION [facility] 08/31/2021 10:4 1 AM EST Liliam [facility] PATHOLOGY ORDERABLES Final Result [facility] [address] [place] [address], * Pap Smear (08/31/2021 12:00 AM EST) Swab Liliam [facility] CYTOLOGY ORDERABLES F inal Result [facility] [address], [place] [phone] * Colonoscopy (04/29/2019) Colonoscopy Normal Normal 04/29/2019 Riri Diaz - 04/29/2019 1:31 PM EDT Recommended 7 year follow up ((7 years span in n individual who has a tendency to have intermittent anemia is the safest time span) see scanned report us Historical Provider HEALTH MAINTENANCE Edited Result - Final from Last 3 Months or Most Recently Relevant to Health Maintenance Additional Health Concerns Active Problems Noted Date [...] neuropathy 06/22/2025 Patient has diabetic neuropathy 06/22/2025 Insurance [facility] DUAL COMPLETE HMO DENTAL - HSN FULL (MEDICAID) DENTAL - [facility] PPO Care Teams Service Cleaner Relationship Specialty Start Date End Date Shay Velasquez MD [address] [place] [address] PCP - General Internal Medicine 01/08/18October [address] [place] [address] [address] [place], [place] Gastroenterology 03/03/25
== END 2025-06-24 09:33 | disposition home or self-care (01) ==
LOC: HO.HHCL 09:32
PROVIDERS: PCP Internal Medicine; Visit Provider Internal Medicine
DX: D50.9 Iron deficiency anemia, unspecified (principal)
CPT/HCPCS: 36415